=== PATIENT | female | born 2000 | race Caucasian/White ===

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

== ENCOUNTER 2019-02-06 13:31 | Emergency (ER) | payer OTHER, MEDICAID, SELFPAY ==
[2019-02-06 13:41] VITALS: BP 141/94; PULSE 78; RESP 16; TEMP 36.2; O2SAT 98
[2019-02-06 15:20] VITALS: BP 140/94; PULSE 81; RESP 15; TEMP 36.4; O2SAT 100
== END 2019-02-06 17:03 | disposition left against medical advice (07) ==
PROVIDERS: Emergency Provider Emergency Medicine
DX: Z53.21 Procedure and treatment not carried out due to patient leaving prior to being seen by health care provider (principal)
CPT/HCPCS: 99282

== ENCOUNTER → 2019-03-02 12:53 | Outpatient (CLI) | payer OTHER, MEDICAID, SELFPAY ==
[2019-03-02 15:11] LABS: Urine N gonorrhoeae NOT DETECTED
[2019-03-02 15:33] LABS: Urine Chlamydia DETECTED
== END ==
PROVIDERS: Visit Provider Physician Assistant
DX: N89.8 Other specified noninflammatory disorders of vagina (principal); R10.9 Unspecified abdominal pain
CPT/HCPCS: 87086; 87210; 87491; 87591

== ENCOUNTER 2019-03-18 14:39 | Emergency (ER) | payer OTHER, MEDICAID, SELFPAY ==
[2019-03-18 14:44] VITALS: BP 126/86; PULSE 105; RESP 14; TEMP 36.6; O2SAT 96; BMI 33.3
--- NOTE | 2019-03-20 12:43 | ED_ITS ---
HPI - Back Pain/Injury General Chief Complaint: Back Pain/Injury Stated Complaint: back pain Related Data Home Medications Medication Instructions Recorded Confirmed albuterol sulfate [Ventolin HFA] 2 puff INH Q4HP PRN #0 02/27/17 03/02/19 ipratropium bromide [Atrovent HFA] 1 puff INH BID #0 02/27/17 03/02/19 ibuprofen #0 07/02/17 03/02/19 acyclovir 400 mg PO BID 07/30/18 03/02/19 Previous Rx's Medication Instructions Recorded azithromycin 250 mg tablet 1,000 mg PO ONCE #4 tab 03/02/19 Allergies Allergy/AdvReac Type Severity Reaction Status Date / Time sertraline [From ZOLOFT] Allergy Unknown Hives Verified 03/18/19 14:47 [facility] Medical History (Updated 03/18/19 @ 18:07 by Esther Francisco RN) 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 Discharge Plan Departure Patient Disposition: Left Against Medical Advice Clinical Impression: Patient left after triage Discharge Date/Time: 03/18/19 17:24 Prescriptions: No Action azithromycin 250 mg tablet 1,000 mg PO ONCE Qty: 4 RF: 0 albuterol sulfate [Ventolin HFA] 90 MCG/PUFF HFA aerosol inhaler 2 puff INH Q4HP PRN (Reason: Shortness Of Breath) Qty: 0 RF: 0 ipratropium bromide [Atrovent HFA] 12.9 GM HFA aerosol inhaler 1 puff INH BID Qty: 0 RF: 0 ibuprofen 200 MG tablet Qty: 0 RF: 0 acyclovir 400 mg tablet 400 mg PO BID RF: 0 Stand Alone Forms: Against Medical Advice
== END 2019-03-18 17:24 | disposition left against medical advice (07) ==
PROVIDERS: Emergency Provider Emergency Medicine
DX: Z53.21 Procedure and treatment not carried out due to patient leaving prior to being seen by health care provider (principal)
CPT/HCPCS: 99281

== ENCOUNTER 2019-03-24 20:21 | Emergency (ER) | payer OTHER, MEDICAID, SELFPAY ==
[2019-03-24 21:21] VITALS: BP 134/85; PULSE 85; RESP 16; TEMP 36.8; O2SAT 96; BMI 33.3
[2019-03-24 23:23] LABS: RBC Urine None Seen (0-5/HPF)
--- NOTE | 2019-03-24 23:33 | ED.BACK ---
HPI - Back Pain/Injury General Chief Complaint: Back Pain/Injury Stated Complaint: LOW BACK PAIN, GOING DOWN LT LEG Time Seen by Provider: 03/24/19 23:04 Source: patient Mode of arrival: ambulatory Limitations: no limitations History of Present Illness HPI Narrative: Patient is a 89-year-old female who presents with back pain. She says she fell about a week ago she has some left flank pain. she has some left leg pain now but did not use to have it. She has no fever or chills no radiation to her abdomen no abnormal vaginal bleeding. No pain free with urination. No other injury. She has been taking Aleve without any relief. Urine is positive, she did not know she was . She has no abdominal pain. she was actually seen here March 20 she actually waited in the waiting room and left prior to evaluation due to the significant long wait. She has been having this back pain off and on for some time. MD Complaint: back pain Related Data Home Medications Medication Instructions Recorded Confirmed albuterol sulfate [Ventolin HFA] 2 puff INH Q4HP PRN #0 02/27/17 03/02/19 ipratropium bromide [Atrovent HFA] 1 puff INH BID #0 02/27/17 03/02/19 ibuprofen #0 07/02/17 03/02/19 acyclovir 400 mg PO BID 07/30/18 03/02/19 Previous Rx's Medication Instructions Recorded azithromycin 250 mg tablet 1,000 mg PO ONCE #4 tab 03/02/19 nitrofurantoin monohyd/m-cryst 100 mg PO BID #14 cap 03/25/19 [Macrobid] prenat.vits,sisi,rfv-exng-dfzph 1 tab PO DAILY #30 tab 03/25/19 Allergies Allergy/AdvReac Type Severity Reaction Status Date / Time sertraline [From ZOLOFT] Allergy Unknown Hives Verified 03/24/19 21:21 Review of Systems Review of Systems ROS Unobtainable: All systems reviewed & are unremarkable except as noted in HPI and below Constitutional Denies chills, Denies fever(s), Denies lethargy and Denies weakness ENT Ears, Nose, Mouth, and Throat: Denies vertigo and Denies dizziness Cardiovascular Denies chest pain, Denies syncope, Denies irregular heart rhythm, Denies lightheadedness, Denies palpitations, Denies dyspnea, Denies dyspnea on exertion and Denies orthopnea Respiratory Denies cough, Denies dyspnea, Denies dyspnea on exertion and Denies wheezing Genitourinary Denies hematuria, Denies flank pain, Denies urinary incontinence and Denies urinary urgency Musculoskeletal Reports as per HPI Integumentary/Breasts Denies pruritus, Denies erythema, Denies rash and Denies wounds Neurologic Denies vertigo, Denies dizziness, Denies syncope and Denies weakness Endocrine Denies palpitations Allergic/Immunologic Denies wheezing [facility] Medical History 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) General counselling and advice on contraception (Resolved) Pyelonephritis (Chronic) Dysmenorrhea (Inactive) Menorrhagia (Inactive) Surgical History No pertinent past surgical history (Chronic) Family History Other Family history non-contributory Social History Smoking Status: Never smoker Family History Other Family history non-contributory Social History Smoking Status: Never smoker Exam Initial Vital Signs Initial Vital Signs: Vital Signs Temperature 98.2 F 03/24/19 21:21 Pulse Rate 85 03/24/19 21:21 Respiratory Rate 16 03/24/19 21:21 Blood Pressure 134/85 03/24/19 21:21 Pulse Oximetry 96 03/24/19 21:21 GENERAL: Well-appearing, well-nourished and in no acute distress. HEENT: Head atraumatic,EOMI, pupils reactive, CARDIOVASCULAR: Regular rate and rhythm without murmurs, rubs or gallops. RESPIRATORY: Breath sounds equal bilaterally, no wheezes rales or rhonchi. ABDOMEN: Soft, nontender. Normoactive bowel sounds all 4 quadrants. No guarding or rebound. BACK: No vertebral tenderness : mild left CVA tenderness PELVIC: External genitalia is normal, no vaginal bleeding, no vaginal discharge, no odor, cervical os is closed, no adnexal tenderness EXTREMITIES: Normal range of motion, no clubbing or edema. Neurovascularly intact NEUROLOGICAL: Alert and oriented x4.Normal gait and speech. SKIN: Warm, dry, no laceration, no petechiae, no rashes or lesions. Course Orders Ordered: ED Orders 03/24/19 23:07 Urine Culture Stat Urine Microscopic Stat 03/24/19 23:40 US pelvic complete Stat 03/24/19 23:55 ABO RH Type Stat Complete Blood Count AUTO DIFF Stat Comprehensive Metabolic Panel Stat HCG Quantitative Stat Discontinued Medications Nitrofurantoin Macrocrystals (Macrobid 100mg Prepack) 1 bottle MISC SEEINSTR ONE Stop: 03/25/19 01:36 Last Admin: 03/25/19 01:47 Dose: 1 bottle Vital Signs - 8 hr 03/24/19 21:21 03/25/19 01:52 Temperature 98.2 F Pulse Rate 85 91 H Respiratory Rate 16 16 Blood Pressure 134/85 134/77 Pulse Oximetry 96 99 MDM - Back Pain/Injury Lab Data Attestation: I reviewed the patient's lab results. Result diagrams: 03/24/19 23:55 03/24/19 23:55 Lab Results 03/24/19 03/24/19 03/24/19 Range/Units 23:07 23:55 23:55 WBC 8.8 (4.5-11.0) X10^3/uL RBC 5.14 (4.0-5.2) X10^6/uL Hgb 14.2 (12.0-16.0) g/dL Hct 42.4 (36-46) % MCV 82.5 (80-100) fL MCH 27.6 (26-34) PG MCHC 33.5 (30-36) % RDW 13.5 (11.6-14.8) % Plt Count 268 (150-400) X10^3/uL Neut % (Auto) 55.1 (50-75) % Lymph % (Auto) 36.1 (25-40) % [place] % (Auto) 6.5 (3-14) % Eos % (Auto) 1.7 L (2-4) % Baso % (Auto) 0.6 (0-2) % Neut # (Auto) 4800 (1990-3520) /uL Lymph # (Auto) 3200 (0744-9265) /uL [place] # (Auto) 600 (0-900) /uL Eos # (Auto) 100 (0-450) /uL Baso # (Auto) 100 (0-100) /uL Sodium 139 (137-145) mmol/L Potassium 3.5 (3.4-5.1) mmol/L Chloride 103 (98-107) mmol/L Carbon Dioxide 25 (22-32) mmol/L BUN 11 (7-17) mg/dL Creatinine 0.60 (0.52-1.04) mg/dL Estimated GFR > 60.0 (>60) mL/min BUN/Creatinine Ratio 18.3 (6-22) Glucose 99 (70-100) mg/dL Calcium 9.0 (8.4-10.2) mg/dL Total Bilirubin 0.3 (0.2-1.3) mg/dL AST 20 (14-36) IU/L ALT 15 (9-52) IU/L Alkaline Phosphatase 79 (38-126) U/L Total Protein 8.0 (6.3-8.2) g/dL Albumin 4.5 (3.5-5.0) g/dL Globulin 3.5 (1.7-4.1) g/dL Albumin/Globulin Ratio 1.3 (1.0-2.8) HCG, Quant 178.98 mIU/mL Urine RBC None seen (0-5/HPF) Urine WBC 1-5/hpf (0-5/HPF) Ur Squamous Epith Cells 1-5 /hpf (0-5/HPF) Urine Bacteria Few (2-10) H (None) Ur Culture Indicated? Specimen cultured Blood Type 03/24/19 Range/Units 23:55 WBC (4.5-11.0) X10^3/uL RBC (4.0-5.2) X10^6/uL Hgb (12.0-16.0) g/dL Hct (36-46) % MCV (80-100) fL MCH (26-34) PG MCHC (30-36) % RDW (11.6-14.8) % Plt Count (150-400) X10^3/uL Neut % (Auto) (50-75) % Lymph % (Auto) (25-40) % [place] % (Auto) (3-14) % Eos % (Auto) (2-4) % Baso % (Auto) (0-2) % Neut # (Auto) (5370-3480) /uL Lymph # (Auto) (9904-2942) /uL [place] # (Auto) (0-900) /uL Eos # (Auto) (0-450) /uL Baso # (Auto) (0-100) /uL Sodium (137-145) mmol/L Potassium (3.4-5.1) mmol/L Chloride (98-107) mmol/L Carbon Dioxide (22-32) mmol/L BUN (7-17) mg/dL Creatinine (0.52-1.04) mg/dL Estimated GFR (>60) mL/min BUN/Creatinine Ratio (6-22) Glucose (70-100) mg/dL Calcium (8.4-10.2) mg/dL Total Bilirubin (0.2-1.3) mg/dL AST (14-36) IU/L ALT (9-52) IU/L Alkaline Phosphatase (38-126) U/L Total Protein (6.3-8.2) g/dL Albumin (3.5-5.0) g/dL Globulin (1.7-4.1) g/dL Albumin/Globulin Ratio (1.0-2.8) HCG, Quant mIU/mL Urine RBC (0-5/HPF) Urine WBC (0-5/HPF) Ur Squamous Epith Cells (0-5/HPF) Urine Bacteria (None) Ur Culture Indicated? 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 Nodular area in the right ovary likely a complex corpus luteum. However findings technically indeterminate. Recommend correlation with HCG levels. Follow-up ultrasound is warranted. MDM Narrative Medical decision making narrative: The patient's last menstrual cycle was February 19. She is likely very early . HCG level is low under 500 and is 178. She has no adnexal tenderness. At this time I think it is too early to tell of if is viable and if ectopic. She has no pain. She does not have an OB or PCP. I strongly recommended she have repeat blood work in 48 hours and repeat ultrasound at a later date. He is given multiple recommendations for OB along with [facility] information She has been having ongoing back pain, however at this time I do not believe she needs imaging of her back. she was also recently treated for Chlamydia March 02. Discharge Plan Departure Patient Disposition: Home Clinical Impression: UTI (urinary tract infection) in in first trimester Discharge Date/Time: 03/25/19 01:53 Interventions: ED Discharge Assessment Last Done: 03/25/19 01:52 Instructions: DI for Urinary Tract Infection (UTI), DI for -- Discomforts and Remedies Activity Restrictions/Additional Instructions: HC.98 Blood type: O+ *You have been diagnosed with bladder infection and early *What to do: You need to have HCG recheck in 48hrs, it needs to double. *Continue to take medications as directed vitamin once daily Macrobid 100 mg twice a day for 7 days Avoid ibuprofen/Aleve/asthma You may take Tylenol 650 mg every 4-6 hours if needed for pain Avoid smoking and alcohol *Follow up with your primary care provider in 2-3 days *Return to ER if you should have increasing abdominal pain, vaginal bleeding, or any new, worsening or concerning symptoms [facility] [address] [place] [address] Get Directions CONTACT US BOOK ONLINE Call: [phone] Prescriptions: Kwan kwan.vits,sisi,bzt-qbnp-oltkw tablet 1 tab PO DAILY Qty: 30 RF: 0 nitrofurantoin monohyd/m-cryst [Macrobid] 100 mg capsule 100 mg PO BID Qty: 14 RF: 0 No Action azithromycin 250 mg tablet 1,000 mg PO ONCE Qty: 4 RF: 0 albuterol sulfate [Ventolin HFA] 90 MCG/PUFF HFA aerosol inhaler 2 puff INH Q4HP PRN (Reason: Shortness Of Breath) Qty: 0 RF: 0 ipratropium bromide [Atrovent HFA] 12.9 GM HFA aerosol inhaler 1 puff INH BID Qty: 0 RF: 0 ibuprofen 200 MG tablet Qty: 0 RF: 0 acyclovir 400 mg tablet 400 mg PO BID RF: 0 Referrals: Leta Armijo MD [Physician] - Charu Locke MD [Physician] - Irena Wood MD [Physician] - Tico Cleveland MD [Physician] - Tico Smith MD [Physician] - Aida Redding DO [Physician] -
--- NOTE | 2019-03-24 23:40 | DI.US.S_ITS ---
PROCEDURE: US PELVIC COMPLETE INDICATIONS: POSITIVE TEST; BACK PAIN TECHNIQUE: Real-time scanning was performed of the pelvic organs, with image documentation. Additional endovaginal scanning was necessary due to incomplete visualization of the adnexal and endometrial structures by transabdominal scanning. COMPARISON: None. FINDINGS: Transabdominal scanning: Limited scanning through the kidneys shows no hydronephrosis. No pathologic free abdominal or pelvic fluid. Endovaginal scanning: Uterus: Uterus is normal in size at 9.9 x 4.9 x 7.0 cm. no intrauterine identified. The endometrium measures 21 mm in combined thickness. Ovaries: Right adnexa measures 3.1 x 3.5 x 2.4 cm. There is a 1.6 x 1.6 x 2.0 cm complex cyst/mass in the right adnexa which may represent a corpus luteal cyst versus ectopic . Left adnexa measures 2.1 x 1.7 x 1.8 cm and left adnexa is sonographically normal. IMPRESSION: 1. No intrauterine identified. 2. Complex right adnexal cyst/mass which may represent corpus luteal cyst or ectopic . Recommend close clinical observation, correlation with serial beta hCG and short term ultrasound followup. 3. Endometrial thickening of uncertain etiology. Gestational trophoblastic disease is not completely excluded. Dictated by: Siria Mariano MD, PhD on 03/25/2019 at 7:48 Approved by: Siria Mariano MD, PhD on 03/25/2019 at 7:54
[2019-03-24 23:41] LABS: Bacteria Urine Few (2-10); Squamous Epithelial Cell Urine 1-5 /HPF (0-5/HPF); WBC Urine 1-5/HPF (0-5/HPF)
[2019-03-24 23:42] LABS: Culture Indicated Urine Specimen Cultured
[2019-03-25 00:15] LABS: Add Manual Diff / Slide Review NO; Basophils Absolute Auto 100 /uL (0-100); Basophils Percent Auto 0.6 % (0-2); Eosinophils Absolute Auto 100 /uL (0-450); Eosinophils Percent Auto 1.7 % (2-4); Hematocrit 42.4 % (36-46); Hemoglobin 14.2 g/dL (12.0-16.0); Lymphocytes Absolute Auto 3200 /uL (1100-4500); Lymphocytes Percent Auto 36.1 % (25-40); Mean Corpuscular HGB Conc 33.5 % (30-36); Mean Corpuscular Hemoglobin 27.6 PG (26-34); Mean Corpuscular Volume 82.5 fL (80-100); Monocytes Absolute Auto 600 /uL (0-900); Monocytes Percent Auto 6.5 % (3-14); Neutrophils Absolute Auto 4800 /uL (1500-7000); Neutrophils Percent Auto 55.1 % (50-75); Platelet Count 268 X10^3/uL (150-400); Red Blood Cell Count 5.14 X10^6/uL (4.0-5.2); Red Cell Distribution Width 13.5 % (11.6-14.8); White Blood Cell Count 8.8 X10^3/uL (4.5-11.0)
[2019-03-25 00:23] LABS: Alanine Aminotransferase 15 IU/L (9-52); Albumin 4.5 g/dL (3.5-5.0); Albumin Globulin Ratio 1.3 (1.0-2.8); Alkaline Phosphatase 79 U/L (38-126); Aspartate Aminotransferase 20 IU/L (14-36); BUN Creatinine Ratio 18.3 (6-22); Bilirubin Total 0.3 mg/dL (0.2-1.3); Blood Urea Nitrogen 11 mg/dL (7-17); Carbon Dioxide 25 mmol/L (22-32); Chloride 103 mmol/L (98-107); Estimated Glomerular Filt Rate > 60.0 mL/min (>60); Globulin 3.5 g/dL (1.7-4.1); Glucose 99 mg/dL (70-100); HEMOLYSIS < 15 (0-50); Potassium 3.5 mmol/L (3.4-5.1); Sodium 139 mmol/L (137-145)
[2019-03-25 00:40] LABS: HCG Quantitative /Beta subunit 178.98 mIU/mL
[2019-03-25] MEDS: NITROFURANTOIN 100MG PREPACK 1 BOTTLE MISC (01:47)
[2019-03-25 01:52] VITALS: BP 134/77; PULSE 91; RESP 16; O2SAT 99
== END 2019-03-25 01:53 | disposition home or self-care (01) ==
PROVIDERS: Emergency Provider Emergency Medicine
DX: O23.41 Unspecified infection of urinary tract in pregnancy, first trimester (principal); R10.9 Unspecified abdominal pain; M79.605 Pain in left leg; W19.XXXA Unspecified fall, initial encounter
CPT/HCPCS: 36415; 76830; 76856; 80053; 81003; 81015; 81025; 84702; 85025; 86900; 86901; 87086; 99282; 99284

== ENCOUNTER → 2019-04-08 13:20 | Outpatient (CLI) | payer OTHER, MEDICAID, SELFPAY ==
[2019-04-08 13:48] LABS: Add Manual Diff / Slide Review NO; Basophils Absolute Auto 100 /uL (0-100); Basophils Percent Auto 0.9 % (0-2); Eosinophils Absolute Auto 100 /uL (0-450); Eosinophils Percent Auto 1.1 % (2-4); Hematocrit 41.9 % (36-46); Hemoglobin 14.1 g/dL (12.0-16.0); Lymphocytes Absolute Auto 2300 /uL (1100-4500); Lymphocytes Percent Auto 28.8 % (25-40); Mean Corpuscular HGB Conc 33.6 % (30-36); Mean Corpuscular Hemoglobin 28.1 PG (26-34); Mean Corpuscular Volume 83.4 fL (80-100); Monocytes Absolute Auto 400 /uL (0-900); Monocytes Percent Auto 5.5 % (3-14); Neutrophils Absolute Auto 5200 /uL (1500-7000); Neutrophils Percent Auto 63.7 % (50-75); Platelet Count 298 X10^3/uL (150-400); Red Blood Cell Count 5.02 X10^6/uL (4.0-5.2); Red Cell Distribution Width 13.3 % (11.6-14.8); White Blood Cell Count 8.1 X10^3/uL (4.5-11.0)
[2019-04-08 13:51] LABS: Appearance Urine UA CLEAR; Bilirubin Urine UA NEGATIVE (NEGATIVE); Color Urine UA YELLOW; Glucose Urine UA NEGATIVE (Negative); Ketones Urine UA NEGATIVE (NEGATIVE); Leukocyte Esterase Urine UA NEGATIVE (NEGATIVE); Nitrite Urine UA NEGATIVE (Negative); Occult Blood Urine UA NEGATIVE (Negative); Protein Urine UA NEGATIVE (Negative); Specific Gravity Urine UA >=1.030 (1.000-1.035); Urobilinogen Urine UA 0.2 E.U./dL (0.2)
[2019-04-08 13:56] LABS: Hemoglobin A1C% w Est Avg Glu 5.1 % (4.0-6.0)
[2019-04-08 13:58] LABS: Glucose 90 mg/dL (70-100)
[2019-04-08 18:29] LABS: Hepatitis B Surface Antigen NEGATIVE s/c (NEGATIVE); Rubella Antibody IgG 37.4 IU/mL (>15)
[2019-04-08 18:42] LABS: HIV 1 and 2 Antibody NEGATIVE (NEGATIVE); Hep C Virus Ab w/Reflex Quant NEGATIVE s/c (NEGATIVE)
[2019-04-10 14:36] LABS: RPR Screen Nonreactive (Nonreactive)
== END ==
DX: Z34.91 Encounter for supervision of normal pregnancy, unspecified, first trimester (principal)
CPT/HCPCS: 36415; 80055; 81003; 82947; 83036; 86703; 86787; 86803; 86850; 86900; 86901; 87086

== ENCOUNTER 2019-04-11 14:23 | Emergency (ER) | payer OTHER, MEDICAID, SELFPAY ==
[2019-04-11 14:29] VITALS: BP 134/84; PULSE 77; RESP 16; TEMP 36.9; O2SAT 97; BMI 32.9
--- NOTE | 2019-04-11 15:15 | ED_ITS ---
HPI - General Chief complaint: Vaginal Bleeding Stated complaint: 8 weeks , bleeding Time Seen by Provider: 04/11/19 14:39 Source: patient Mode of arrival: ambulatory Limitations: no limitations History of Present Illness HPI Narrative: Patient is a 18-year-old who is currently presenting with back pain and some light spotting. Today she woke up with actually nausea and dry heaving. She has no abdominal pain. No fever. She recently had her 1st OB visit, and ultrasound showed 7 weeks 4 days per patient. She is previously had frequent UTIs. She has also previously had some flank pain. 03/24/2019 she was diagnosed with UTI she was given antibiotics. She said symptoms improved since then however this morning she has been having some nausea and vaginal spotting. MD Complaint: vaginal bleeding Patient : Yes Related Data Home Medications Medication Instructions Recorded Confirmed albuterol sulfate [Ventolin HFA] 2 puff INH Q4HP PRN #0 02/27/17 03/02/19 ipratropium bromide [Atrovent HFA] 1 puff INH BID #0 02/27/17 03/02/19 Previous Rx's Medication Instructions Recorded prenat.vits,sisi,fbz-hqdg-zsyfq 1 tab PO DAILY #30 tab 03/25/19 Allergies Allergy/AdvReac Type Severity Reaction Status Date / Time sertraline [From ZOLOFT] Allergy Unknown Hives Verified 04/11/19 14:33 Review of Systems Review of Systems ROS Unobtainable: All systems reviewed & are unremarkable except as noted in HPI and below Constitutional Denies chills, Denies fever(s), Denies lethargy and Denies weakness Eyes Denies change in vision, Denies eye discharge, Denies irritation and Denies loss of vision ENT Ears, Nose, Mouth, and Throat: Denies change in voice, Denies neck pain and Denies sore throat Cardiovascular Denies chest pain, Denies irregular heart rhythm, Denies lightheadedness, Denies palpitations, Denies dyspnea, Denies dyspnea on exertion and Denies orthopnea Respiratory Denies cough, Denies dyspnea, Denies dyspnea on exertion and Denies wheezing Gastrointestinal Gastrointestinal: Denies abdominal pain, Denies change in bowel habits, Denies diarrhea, Denies nausea and Denies vomiting Genitourinary Reports system reviewed and no additional complaints, except as docu Musculoskeletal Denies neck pain Integumentary/Breasts Denies pruritus, Denies erythema, Denies rash and Denies wounds Neurologic Denies loss of vision and Denies weakness Endocrine Denies palpitations Allergic/Immunologic Denies wheezing PMFSH - Past Medical History Medical history: Reports no medical history Surgical history: Reports no surgical history Patient : Yes Exam Initial Vital Signs Initial Vital Signs: Vital Signs Temperature 98.5 F 04/11/19 14:29 Pulse Rate 77 04/11/19 14:29 Respiratory Rate 16 04/11/19 14:29 Blood Pressure 134/84 04/11/19 14:29 Pulse Oximetry 97 04/11/19 14:29 GENERAL: Well-appearing, well-nourished and in no acute distress. HEENT: Head atraumatic,EOMI, pupils reactive, face symmetric, moist mucous membranes CARDIOVASCULAR: Regular rate and rhythm without murmurs, rubs or gallops. RESPIRATORY: Breath sounds equal bilaterally, no wheezes rales or rhonchi. ABDOMEN: Soft, nontender. Normoactive bowel sounds all 4 quadrants. No guarding or rebound. EXTREMITIES: Normal range of motion, no clubbing or edema. Neurovascularly intact NEUROLOGICAL: Alert and oriented x4.Normal gait and speech. SKIN: Warm, dry, no laceration, no petechiae, no rashes or lesions. Course Orders Ordered: Discontinued Medications Sodium Chloride (Normal Saline 0.9%) 1,000 mls @ 1,000 mls/hr IV BOLUS ONE Stop: 04/11/19 16:14 Last Infusion: 04/11/19 16:51 Dose: 0 mls/hr Admin: 04/11/19 15:28 Dose: 1,000 mls/hr Ondansetron HCl (Zofran) 4 mg IV NOW ONE Stop: 04/11/19 15:23 Last Admin: 04/11/19 15:28 Dose: 4 mg Vital Signs - 8 hr 04/11/19 14:29 04/11/19 16:34 Temperature 98.5 F 99.0 F Pulse Rate 77 77 Respiratory Rate 16 16 Blood Pressure 134/84 Blood Pressure [Left Arm] 126/67 Pulse Oximetry 97 99 MDM - OB/Uterine Contractions Lab Data Attestation: I reviewed the patient's lab results. Result diagrams: 04/11/19 15:45 05/25/19 15:45 Lab Results 04/11/19 04/11/19 04/11/19 Range/Units 15:45 15:45 15:57 WBC 7.9 (4.5-11.0) X10^3/uL RBC 4.90 (4.0-5.2) X10^6/uL Hgb 13.8 (12.0-16.0) g/dL Hct 40.4 (36-46) % MCV 82.5 (80-100) fL MCH 28.2 (26-34) PG MCHC 34.2 (30-36) % RDW 13.5 (11.6-14.8) % Plt Count 276 (150-400) X10^3/uL Neut % (Auto) 63.5 (50-75) % Lymph % (Auto) 29.0 (25-40) % [place] % (Auto) 5.7 (3-14) % Eos % (Auto) 1.2 L (2-4) % Baso % (Auto) 0.6 (0-2) % Neut # (Auto) 5000 (1114-6928) /uL Lymph # (Auto) 2300 (5582-7426) /uL [place] # (Auto) 400 (0-900) /uL Eos # (Auto) 100 (0-450) /uL Baso # (Auto) 0 (0-100) /uL Sodium 136 L (137-145) mmol/L Potassium 4.2 (3.4-5.1) mmol/L Chloride 104 (98-107) mmol/L Carbon Dioxide 24 (22-32) mmol/L BUN 9 (7-17) mg/dL Creatinine 0.50 L (0.52-1.04) mg/dL Estimated GFR > 60.0 (>60) mL/min BUN/Creatinine Ratio 18.0 (6-22) Glucose 85 (70-100) mg/dL Calcium 9.5 (8.4-10.2) mg/dL Total Bilirubin 0.5 (0.2-1.3) mg/dL AST 33 (14-36) IU/L ALT 25 (9-52) IU/L Alkaline Phosphatase 57 (38-126) U/L Total Protein 7.8 (6.3-8.2) g/dL Albumin 4.4 (3.5-5.0) g/dL Globulin 3.4 (1.7-4.1) g/dL Albumin/Globulin Ratio 1.3 (1.0-2.8) HCG, Quant 75386 mIU/mL Urine Color Yellow Urine Appearance Clear Urine pH 5.5 (4.5-8.0) Ur Specific [place] 1.025 (1.000-1.035) Urine Protein Trace H (Negative) Urine Glucose (UA) Negative (Negative) g/dL Urine Ketones Negative (NEGATIVE) Urine Occult Blood Negative (Negative) Urine Nitrate Negative (Negative) Urine Bilirubin Negative (NEGATIVE) Urine Urobilinogen 0.2 (0.2) E.U./dL Ur Leukocyte Esterase 2+ H (NEGATIVE) Urine RBC None seen (0-5/HPF) Urine WBC 5-10/hpf H (0-5/HPF) Ur Squamous Epith Cells 5-10 /hpf H (0-5/HPF) Urine Bacteria None seen (None) Urine Mucus 2+ H (Negative) Ur Culture Indicated? Cult not indicated Point of Care Testing Test Results Positive Imaging Data pelvic US: Radiologist's impression: PROCEDURE: US OB <= 14 WEEKS FETUS INDICATIONS: BLEEDING; BACK PAIN OUTSIDE/PRIOR DATING DATA: Last menstrual period (LMP): 02/19/19. LMP-based estimated date of delivery (HIEN): 11/26/19. First dating scan (date and location): 04/11/19, [facility]. Estimated date of delivery (HIEN) from first dating scan: 12/02/19. TECHNIQUE: Real-time scanning was performed of the fetus and maternal pelvic organs, with image documentation. Endovaginal scanning was also performed to better visualize the fetus and maternal ovaries. COMPARISON: [facility], US, US PELVIC COMPLETE, 03/25/2019, 0:17. FINDINGS: Embryo: A single live intrauterine is seen. The measured heart rate is 118 beats per minute. The crown-rump length measures 0.6 cm, corresponding to an estimated gestational age of 6 weeks 3 days. It is too early for detailed anatomic assessment. By visual inspection, the amount of amniotic fluid is within normal limits. Adjacent to the gestational sac, there is an irregular fluid collection seen that measures 4.1- 0.6 x 3.4 cm. Measurement variability in dating: +/- 4 weeks by LMP, +/- 7 days by mean sac diameter (use before 6 weeks gestation if crown-rump length not able to be measured), +/- 5 days by crown-rump length (up to 8 weeks 6 days gestation), +/- 7 days by crown-rump length (up to 13 weeks 6 days gestation). Maternal organs: Ovaries are unremarkable, with a corpus luteum seen on the right. Limited images through the kidneys demonstrate no hydronephrosis. IMPRESSION: A single live intrauterine is seen. Moderate subchorionic hemorrhage is seen. No significant discrepancy is found between the estimated gestational age based on these images and the estimated gestational age based upon the given date of the last menstrual period. Close clinical followup, with serial beta-hCG and serial ultrasound are recommended, as clinically appropriate. Dictated by: Carlos Lazo M.D. on 04/11/2019 at 15:40 MDM Narrative Medical decision making narrative: Patient overall is feeling much better tolerating oral fluid. Discharge Plan Departure Patient Disposition: Home Clinical Impression: Subchorionic hematoma in first trimester Qualifiers: Fetus number: single or unspecified fetus Qualified Code(s): O41.8X10 - Other specified disorders of amniotic fluid and membranes, first trimester, not applicable or unspecified Discharge Date/Time: 04/11/19 17:45 Interventions: ED Discharge Assessment Last Done: 04/11/19 17:44 Instructions: DI for Vaginal Bleeding During Activity Restrictions/Additional Instructions: *You have been diagnosed with vaginal bleeding while *What to do: Pelvic rest until bleeding has stopped. No sign of infection at this time. Recommend taking up medication from store for nausea *Continue to take medications as directed *Follow up with your primary care provider in 2-3 days *Return to ER if you should have increased vaginal bleeding, pain inability to tolerate fluids or any new, worsening or concerning symptoms Prescriptions: No Action albuterol sulfate [Ventolin HFA] 90 MCG/PUFF HFA aerosol inhaler 2 puff INH Q4HP PRN (Reason: Shortness Of Breath) Qty: 0 RF: 0 ipratropium bromide [Atrovent HFA] 12.9 GM HFA aerosol inhaler 1 puff INH BID Qty: 0 RF: 0 prenat.vits,sisi,cmm-staw-jswru tablet 1 tab PO DAILY Qty: 30 RF: 0
[2019-04-11] MEDS: SODIUM CHLORIDE 0.9% 1,000 ML 1000 ML IV (15:28)
[2019-04-11] MEDS: ONDANSETRON 4 MG/2 ML INJ IV (15:28)
[2019-04-11 15:54] LABS: Add Manual Diff / Slide Review NO; Basophils Absolute Auto 0 /uL (0-100); Basophils Percent Auto 0.6 % (0-2); Eosinophils Absolute Auto 100 /uL (0-450); Eosinophils Percent Auto 1.2 % (2-4); Hematocrit 40.4 % (36-46); Hemoglobin 13.8 g/dL (12.0-16.0); Lymphocytes Absolute Auto 2300 /uL (1100-4500); Mean Corpuscular HGB Conc 34.2 % (30-36); Mean Corpuscular Hemoglobin 28.2 PG (26-34); Mean Corpuscular Volume 82.5 fL (80-100); Monocytes Absolute Auto 400 /uL (0-900); Monocytes Percent Auto 5.7 % (3-14); Neutrophils Absolute Auto 5000 /uL (1500-7000); Neutrophils Percent Auto 63.5 % (50-75); Platelet Count 276 X10^3/uL (150-400); Red Cell Distribution Width 13.5 % (11.6-14.8); White Blood Cell Count 7.9 X10^3/uL (4.5-11.0)
[2019-04-11 15:59] LABS: Bacteria Urine None Seen; RBC Urine None Seen (0-5/HPF)
[2019-04-11 16:03] LABS: Appearance Urine UA CLEAR; Bilirubin Urine UA NEGATIVE (NEGATIVE); Color Urine UA YELLOW; Glucose Urine UA NEGATIVE (Negative); Ketones Urine UA NEGATIVE (NEGATIVE); Leukocyte Esterase Urine UA 2+ (NEGATIVE); Nitrite Urine UA NEGATIVE (Negative); Occult Blood Urine UA NEGATIVE (Negative); Protein Urine UA TRACE (Negative); Specific Gravity Urine UA 1.025 (1.000-1.035); Urobilinogen Urine UA 0.2 E.U./dL (0.2); pH Urine UA 5.5 (4.5-8.0)
[2019-04-11 16:04] LABS: Alanine Aminotransferase 25 IU/L (9-52); Albumin 4.4 g/dL (3.5-5.0); Albumin Globulin Ratio 1.3 (1.0-2.8); Alkaline Phosphatase 57 U/L (38-126); Aspartate Aminotransferase 33 IU/L (14-36); Bilirubin Total 0.5 mg/dL (0.2-1.3); Blood Urea Nitrogen 9 mg/dL (7-17); Calcium 9.5 mg/dL (8.4-10.2); Carbon Dioxide 24 mmol/L (22-32); Chloride 104 mmol/L (98-107); Estimated Glomerular Filt Rate > 60.0 mL/min (>60); Globulin 3.4 g/dL (1.7-4.1); Glucose 85 mg/dL (70-100); HEMOLYSIS 39 (0-50); Potassium 4.2 mmol/L (3.4-5.1); Sodium 136 mmol/L (137-145); Total Protein 7.8 g/dL (6.3-8.2)
[2019-04-11 16:09] LABS: Mucus Urine 2+ (Negative); Squamous Epithelial Cell Urine 5-10 /HPF (0-5/HPF); WBC Urine 5-10/HPF (0-5/HPF)
[2019-04-11 16:10] LABS: Culture Indicated Urine Cult Not Indicated
[2019-04-11 16:34] VITALS: BP 126/67; PULSE 77; RESP 16; TEMP 37.2; O2SAT 99
[2019-04-11 16:46] LABS: HCG Quantitative /Beta subunit 52259 mIU/mL
[2019-04-11 17:44] VITALS: BP 132/65; PULSE 67; RESP 18; TEMP 37.2; O2SAT 97
== END 2019-04-11 17:45 | disposition home or self-care (01) ==
PROVIDERS: Emergency Provider Emergency Medicine
DX: O41.8X10 Other specified disorders of amniotic fluid and membranes, first trimester, not applicable or unspecified (principal); Z3A.01 Less than 8 weeks gestation of pregnancy
CPT/HCPCS: 36591; 76801; 76817; 80053; 81001; 81025; 84702; 85025; 96361; 96374; 99283; 99284; J2405

== ENCOUNTER → 2019-04-16 13:20 | Outpatient (CLI) | payer OTHER, MEDICAID, SELFPAY ==
[2019-04-16 17:29] LABS: Urine N gonorrhoeae NOT DETECTED
[2019-04-16 17:33] LABS: Urine Chlamydia NOT DETECTED
== END ==
DX: Z11.3 Encounter for screening for infections with a predominantly sexual mode of transmission (principal); Z11.8 Encounter for screening for other infectious and parasitic diseases; Z3A.08 8 weeks gestation of pregnancy
CPT/HCPCS: 87491; 87591

== ENCOUNTER 2019-05-10 16:24 | Emergency (ER) | payer OTHER, MEDICAID, SELFPAY ==
[2019-05-10 16:34] VITALS: BP 140/95; PULSE 120; RESP 18; TEMP 37.1; O2SAT 97; BMI 33.1
--- NOTE | 2019-05-10 17:54 | ED.NAVMDI ---
HPI - Nausea/Vomiting/Diarrhea General Chief complaint: Nausea/Vomiting/Diarrhea Stated complaint: Dr. Locke requests fluids for 10 weeks ob Time Seen by Provider: 05/10/19 17:54 Source: patient Mode of arrival: ambulatory Limitations: no limitations History of Present Illness HPI Narrative: Patient is a 18-year-old female who is 10 weeks presenting all with abdominal cramping and nausea. She says she has been unable to keep anything down for the last 3 days. She actually was constipated she thinks probably from Zofran so she took some magnesium citrate she then has had diarrhea for the last day. She has not been vomiting today but still feels a little nauseated. She denies any fever no vaginal bleeding. MD complaint: nausea, vomiting and diarrhea Related Data Home Medications Medication Instructions Recorded Confirmed albuterol sulfate [Ventolin HFA] 2 puff INH Q4HP PRN #0 02/27/17 03/02/19 ipratropium bromide [Atrovent HFA] 1 puff INH BID #0 02/27/17 03/02/19 Previous Rx's Medication Instructions Recorded prenat.vits,sisi,usa-odhn-ibgbf 1 tab PO DAILY #30 tab 03/25/19 clindamycin 2 % vaginal cream 1 applicator VAG BEDTIME #70 gram 04/17/19 nitrofurantoin monohyd/m-cryst 100 mg PO Q12H #14 cap 05/10/19 [Macrobid] Allergies Allergy/AdvReac Type Severity Reaction Status Date / Time sertraline [From ZOLOFT] Allergy Unknown Hives Verified 05/10/19 16:34 Review of Systems Review of Systems GENERAL: Denies chills, fatigue, malaise, fever, sweats, travel HEENT: Denies sinus pain, ear pain, sore throat, difficulty swallowing, neck pain RESPIRATORY: Denies dyspnea, cough, wheezing, hemoptysis, sputum. CARDIOVASCULAR: Denies chest pain, palpitations, orthopnea, edema GASTROINTESTINAL: see HPI : Denies dysuria, frequency, incontinence, hematuria, urinary retention, flank pain. MUSCULOSKELETAL: Denies weakness, joint pain, or bony pain SKIN: No rash, no erythema, no pruritus NEUROLOGIC: Denies weakness, dizziness, headache, numbness, change in speech, confusion PSYCHIATRIC: No concerning psychosocial issues. 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) General counselling and advice on contraception (Resolved) Pyelonephritis (Chronic) Dysmenorrhea (Inactive) Menorrhagia (Inactive) Surgical History No pertinent past surgical history (Chronic) Family History Other Family history non-contributory Social History Smoking Status: Never smoker Family History Other Family history non-contributory Social History Smoking Status: Never smoker Exam Initial Vital Signs Initial Vital Signs: Vital Signs Temperature 98.7 F 05/10/19 16:34 Pulse Rate 120 H 05/10/19 16:34 Respiratory Rate 18 05/10/19 16:34 Blood Pressure 140/95 H 05/10/19 16:34 Pulse Oximetry 97 05/10/19 16:34 GENERAL: Well-appearing, well-nourished and in no acute distress. HEENT: Head atraumatic,EOMI, pupils reactive, face symmetric CARDIOVASCULAR: Regular rate and rhythm without murmurs, rubs or gallops. RESPIRATORY: Breath sounds equal bilaterally, no wheezes rales or rhonchi. ABDOMEN: Soft, nontender. Normoactive bowel sounds all 4 quadrants. No guarding or rebound. : No CVA tenderness EXTREMITIES: Normal range of motion, no clubbing or edema. Neurovascularly intact NEUROLOGICAL: Alert and oriented x4.Normal gait and speech. Cranial nerves II through XII grossly intact. SKIN: Warm, dry, no laceration, no petechiae, no rashes or lesions. Course Orders Ordered: ED Orders 05/10/19 17:35 Urine Culture Stat Urine Microscopic Stat 05/10/19 17:45 CBC [Complete Blood Count AUTO DIFF] Stat CMP [Comprehensive Metabolic Panel] Stat 05/10/19 18:10 US OB <= 14 weeks fetus Stat Discontinued Medications Sodium Chloride (Normal Saline 0.9%) 1,000 mls @ 1,000 mls/hr IV BOLUS ONE Stop: 05/10/19 18:50 Last Infusion: 05/10/19 18:50 Dose: 0 mls/hr Admin: 05/10/19 17:55 Dose: 1,000 mls/hr Metoclopramide HCl (Reglan) 10 mg IV NOW ONE Stop: 05/10/19 18:11 Last Admin: 05/10/19 18:11 Dose: 10 mg Vital Signs - 8 hr 05/10/19 18:27 05/10/19 19:40 Temperature 98.2 F Pulse Rate 76 77 Respiratory Rate 16 Blood Pressure 121/72 Blood Pressure [Left Arm] 127/61 Pulse Oximetry 98 99 MDM - Nausea/Vomiting/Diarrhea Lab Data Attestation: I reviewed the patient's lab results. Result diagrams: 05/10/19 17:45 05/10/19 17:45 Lab Results 05/10/19 05/10/19 05/10/19 Range/Units 17:35 17:45 17:45 WBC 8.5 (4.5-11.0) X10^3/uL RBC 4.73 (4.0-5.2) X10^6/uL Hgb 13.5 (12.0-16.0) g/dL Hct 39.3 (36-46) % MCV 83.3 (80-100) fL MCH 28.5 (26-34) PG MCHC 34.2 (30-36) % RDW 13.0 (11.6-14.8) % Plt Count 258 (150-400) X10^3/uL Neut % (Auto) 67.7 (50-75) % Lymph % (Auto) 25.7 (25-40) % [place] % (Auto) 5.4 (3-14) % Eos % (Auto) 0.8 L (2-4) % Baso % (Auto) 0.4 (0-2) % Neut # (Auto) 5800 (8039-6471) /uL Lymph # (Auto) 2200 (2137-6889) /uL [place] # (Auto) 500 (0-900) /uL Eos # (Auto) 100 (0-450) /uL Baso # (Auto) 0 (0-100) /uL Sodium 138 (137-145) mmol/L Potassium 3.7 (3.4-5.1) mmol/L Chloride 106 (98-107) mmol/L Carbon Dioxide 21 L (22-32) mmol/L BUN 8 (7-17) mg/dL Creatinine 0.40 L (0.52-1.04) mg/dL Estimated GFR > 60.0 (>60) mL/min BUN/Creatinine Ratio 20.0 (6-22) Glucose 114 H (70-100) mg/dL Calcium 9.5 (8.4-10.2) mg/dL Total Bilirubin 0.4 (0.2-1.3) mg/dL AST 23 (14-36) IU/L ALT 21 (9-52) IU/L Alkaline Phosphatase 62 (38-126) U/L Total Protein 7.6 (6.3-8.2) g/dL Albumin 4.2 (3.5-5.0) g/dL Globulin 3.4 (1.7-4.1) g/dL Albumin/Globulin Ratio 1.2 (1.0-2.8) Urine RBC None seen (0-5/HPF) Urine WBC 1-5/hpf (0-5/HPF) Ur Squamous Epith Cells 0-1 /hpf (0-5/HPF) Amorphous Sediment 3+ Urine Bacteria Few (2-10) H (None) Urine Mucus 1+ H (Negative) Ur Culture Indicated? Specimen cultured Urine Dip Bedside Urine Glucose Negative Bedside Urine Bilirubin + 1 Bedside Urine Ketone +/- 5 Urine Specific [place] 1.030 Bedside Urine Occult Blood - Negative Bedside Urine pH 5.5 Bedside Urine Protein +/- 15 Bedside Urine Urobilinogen +/- 1mg Bedside Urine Nitrite - Negative Bedside Urine Leukocytes + 70 Esterase Imaging Data OB US: Radiologist's impression: PROCEDURE: US OB <= 14 WEEKS FETUS INDICATIONS: CRAMPING OUTSIDE/PRIOR DATING DATA: Last menstrual period (LMP): 02/19/19. LMP-based estimated date of delivery (HIEN): 11/26/19. First dating scan (date and location): 04/11/19. Estimated date of delivery (HIEN) from first dating scan: 12/02/19. TECHNIQUE: Real-time scanning was performed of the fetus and maternal pelvic organs, with image documentation. Endovaginal scanning was also performed to better visualize the fetus and maternal ovaries. COMPARISON: [facility], , OB <= 14 WEEKS FETUS, 04/16/2019, 9:29. FINDINGS: Embryo: Gestational sac is noted within the endometrium with fetus seen. [place]-rump length measures 4.3 cm. Estimated gestational age based on current study is 11 weeks one day. Estimated gestational age based on initial study is 10 weeks 4 days. heart rate is 153 beats per minute. Measurement variability in dating: +/- 4 weeks by LMP, +/- 7 days by mean sac diameter (use before 6 weeks gestation if crown-rump length not able to be measured), +/- 5 days by crown-rump length (up to 8 weeks 6 days gestation), +/- 7 days by crown-rump length (up to 13 weeks 6 days gestation). Maternal organs: Bilateral ovaries are not visualized on this study.. Limited images through the kidneys demonstrate no hydronephrosis. IMPRESSION: Single live intrauterine gestation. heart rate is 153 beats per minute. Normal growth. Dictated by: Wilbert Fallon M.D. on 05/10/2019 at 19:00 [facility] Narrative Medical decision making narrative: Patient overall is feeling much better. He seemed to respond well to Reglan she was not vomiting here. Now tolerating oral fluids and is even hungry. Discharge Plan Departure Patient Disposition: Home Clinical Impression: UTI (urinary tract infection) during Qualifiers: Trimester: first trimester Qualified Code(s): O23.41 - Unspecified infection of urinary tract in , first trimester Discharge Date/Time: 05/10/19 19:41 Interventions: ED Discharge Assessment Last Done: 05/10/19 19:40 Instructions: DI for Urinary Tract Infection (UTI) Activity Restrictions/Additional Instructions: *You have been diagnosed with UTI in *What to do: Increased fluid intake, recommend Gatorade or Gatorade like products *Continue to take medications as directed Macrobid 100 mg twice a day for 14 days sent to [facility] in [place] *Follow up with your Ob tomorrow as previously scheduled *Return to ER if you should have persistent vomiting in bili to keep fluids down or any new, worsening or concerning symptoms Prescriptions: New nitrofurantoin monohyd/m-cryst [Macrobid] 100 mg capsule 100 mg PO Q12H Qty: 14 RF: 0 No Action albuterol sulfate [Ventolin HFA] 90 MCG/PUFF HFA aerosol inhaler 2 puff INH Q4HP PRN (Reason: Shortness Of Breath) Qty: 0 RF: 0 ipratropium bromide [Atrovent HFA] 12.9 GM HFA aerosol inhaler 1 puff INH BID Qty: 0 RF: 0 clindamycin phosphate 2 % cream 1 applicator VAG BEDTIME Qty: 70 RF: 0 prenat.vits,sisi,oav-ptdm-rbstd tablet 1 tab PO DAILY Qty: 30 RF: 0 Referrals: Charu Locke MD [Primary Care Provider] - Tico Cleveland MD [Physician] -
[2019-05-10] MEDS: SODIUM CHLORIDE 0.9% 1,000 ML 1000 ML IV (17:55)
--- NOTE | 2019-05-10 17:57 | ED_ITS ---
HPI - Nausea/Vomiting/Diarrhea General Chief complaint: Nausea/Vomiting/Diarrhea Stated complaint: Dr. Locke requests fluids for 10 weeks ob Time Seen by Provider: 05/10/19 17:54 Source: patient Mode of arrival: ambulatory Limitations: no limitations History of Present Illness HPI Narrative: Patient is a 18-year-old female who is 10 weeks presenting all with abdominal cramping and nausea. She says she has been unable to keep anything down for the last 3 days. She actually was constipated she thinks probably from Zofran so she took some magnesium citrate she then has had diarrhea for the last day. She has not been vomiting today but still feels a little nauseated. She denies any fever no vaginal bleeding. MD complaint: nausea, vomiting and diarrhea Related Data Home Medications Medication Instructions Recorded Confirmed albuterol sulfate [Ventolin HFA] 2 puff INH Q4HP PRN #0 02/27/17 03/02/19 ipratropium bromide [Atrovent HFA] 1 puff INH BID #0 02/27/17 03/02/19 Previous Rx's Medication Instructions Recorded prenat.vits,sisi,luo-rsur-thatf 1 tab PO DAILY #30 tab 03/25/19 clindamycin 2 % vaginal cream 1 applicator VAG BEDTIME #70 gram 04/17/19 nitrofurantoin monohyd/m-cryst 100 mg PO Q12H #14 cap 05/10/19 [Macrobid] Allergies Allergy/AdvReac Type Severity Reaction Status Date / Time sertraline [From ZOLOFT] Allergy Unknown Hives Verified 05/10/19 16:34 Review of Systems Review of Systems GENERAL: Denies chills, fatigue, malaise, fever, sweats, travel HEENT: Denies sinus pain, ear pain, sore throat, difficulty swallowing, neck pain RESPIRATORY: Denies dyspnea, cough, wheezing, hemoptysis, sputum. CARDIOVASCULAR: Denies chest pain, palpitations, orthopnea, edema GASTROINTESTINAL: see HPI : Denies dysuria, frequency, incontinence, hematuria, urinary retention, flank pain. MUSCULOSKELETAL: Denies weakness, joint pain, or bony pain SKIN: No rash, no erythema, no pruritus NEUROLOGIC: Denies weakness, dizziness, headache, numbness, change in speech, confusion PSYCHIATRIC: No concerning psychosocial issues. 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) General counselling and advice on contraception (Resolved) Pyelonephritis (Chronic) Dysmenorrhea (Inactive) Menorrhagia (Inactive) Surgical History No pertinent past surgical history (Chronic) Family History Other Family history non-contributory Social History Smoking Status: Never smoker Family History Other Family history non-contributory Social History Smoking Status: Never smoker Exam Initial Vital Signs Initial Vital Signs: Vital Signs Temperature 98.7 F 05/10/19 16:34 Pulse Rate 120 H 05/10/19 16:34 Respiratory Rate 18 05/10/19 16:34 Blood Pressure 140/95 H 05/10/19 16:34 Pulse Oximetry 97 05/10/19 16:34 GENERAL: Well-appearing, well-nourished and in no acute distress. HEENT: Head atraumatic,EOMI, pupils reactive, face symmetric CARDIOVASCULAR: Regular rate and rhythm without murmurs, rubs or gallops. RESPIRATORY: Breath sounds equal bilaterally, no wheezes rales or rhonchi. ABDOMEN: Soft, nontender. Normoactive bowel sounds all 4 quadrants. No guarding or rebound. : No CVA tenderness EXTREMITIES: Normal range of motion, no clubbing or edema. Neurovascularly intact NEUROLOGICAL: Alert and oriented x4.Normal gait and speech. Cranial nerves II through XII grossly intact. SKIN: Warm, dry, no laceration, no petechiae, no rashes or lesions. Course Orders Ordered: ED Orders 05/10/19 17:35 Urine Culture Stat Urine Microscopic Stat 05/10/19 17:45 CBC [Complete Blood Count AUTO DIFF] Stat CMP [Comprehensive Metabolic Panel] Stat 05/10/19 18:10 US OB <= 14 weeks fetus Stat Discontinued Medications Sodium Chloride (Normal Saline 0.9%) 1,000 mls @ 1,000 mls/hr IV BOLUS ONE Stop: 05/10/19 18:50 Last Infusion: 05/10/19 18:50 Dose: 0 mls/hr Admin: 05/10/19 17:55 Dose: 1,000 mls/hr Metoclopramide HCl (Reglan) 10 mg IV NOW ONE Stop: 05/10/19 18:11 Last Admin: 05/10/19 18:11 Dose: 10 mg Vital Signs - 8 hr 05/10/19 18:27 05/10/19 19:40 Temperature 98.2 F Pulse Rate 76 77 Respiratory Rate 16 Blood Pressure 121/72 Blood Pressure [Left Arm] 127/61 Pulse Oximetry 98 99 MDM - Nausea/Vomiting/Diarrhea Lab Data Attestation: I reviewed the patient's lab results. Result diagrams: 05/10/19 17:45 05/10/19 17:45 Lab Results 05/10/19 05/10/19 05/10/19 Range/Units 17:35 17:45 17:45 WBC 8.5 (4.5-11.0) X10^3/uL RBC 4.73 (4.0-5.2) X10^6/uL Hgb 13.5 (12.0-16.0) g/dL Hct 39.3 (36-46) % MCV 83.3 (80-100) fL MCH 28.5 (26-34) PG MCHC 34.2 (30-36) % RDW 13.0 (11.6-14.8) % Plt Count 258 (150-400) X10^3/uL Neut % (Auto) 67.7 (50-75) % Lymph % (Auto) 25.7 (25-40) % [place] % (Auto) 5.4 (3-14) % Eos % (Auto) 0.8 L (2-4) % Baso % (Auto) 0.4 (0-2) % Neut # (Auto) 5800 (1470-6449) /uL Lymph # (Auto) 2200 (3530-2571) /uL [place] # (Auto) 500 (0-900) /uL Eos # (Auto) 100 (0-450) /uL Baso # (Auto) 0 (0-100) /uL Sodium 138 (137-145) mmol/L Potassium 3.7 (3.4-5.1) mmol/L Chloride 106 (98-107) mmol/L Carbon Dioxide 21 L (22-32) mmol/L BUN 8 (7-17) mg/dL Creatinine 0.40 L (0.52-1.04) mg/dL Estimated GFR > 60.0 (>60) mL/min BUN/Creatinine Ratio 20.0 (6-22) Glucose 114 H (70-100) mg/dL Calcium 9.5 (8.4-10.2) mg/dL Total Bilirubin 0.4 (0.2-1.3) mg/dL AST 23 (14-36) IU/L ALT 21 (9-52) IU/L Alkaline Phosphatase 62 (38-126) U/L Total Protein 7.6 (6.3-8.2) g/dL Albumin 4.2 (3.5-5.0) g/dL Globulin 3.4 (1.7-4.1) g/dL Albumin/Globulin Ratio 1.2 (1.0-2.8) Urine RBC None seen (0-5/HPF) Urine WBC 1-5/hpf (0-5/HPF) Ur Squamous Epith Cells 0-1 /hpf (0-5/HPF) Amorphous Sediment 3+ Urine Bacteria Few (2-10) H (None) Urine Mucus 1+ H (Negative) Ur Culture Indicated? Specimen cultured Urine Dip Bedside Urine Glucose Negative Bedside Urine Bilirubin + 1 Bedside Urine Ketone +/- 5 [address] [place] 1.030 Bedside Urine Occult Blood - Negative Bedside Urine pH 5.5 Bedside Urine Protein +/- 15 Bedside Urine Urobilinogen +/- 1mg Bedside Urine Nitrite - Negative Bedside Urine Leukocytes + 70 Esterase Imaging Data OB US: Radiologist's impression: PROCEDURE: US OB <= 14 WEEKS FETUS INDICATIONS: CRAMPING OUTSIDE/PRIOR DATING DATA: Last menstrual period (LMP): 02/19/19. LMP-based estimated date of delivery (HIEN): 11/26/19. First dating scan (date and location): 04/11/19. Estimated date of delivery (HIEN) from first dating scan: 12/02/19. TECHNIQUE: Real-time scanning was performed of the fetus and maternal pelvic organs, with image documentation. Endovaginal scanning was also performed to better visualize the fetus and maternal ovaries. COMPARISON: [facility], , OB <= 14 WEEKS FETUS, 04/16/2019, 9:29. FINDINGS: Embryo: Gestational sac is noted within the endometrium with fetus seen. [place]- rump length measures 4.3 cm. Estimated gestational age based on current study is 11 weeks one day. Estimated gestational age based on initial study is 10 weeks 4 days. heart rate is 153 beats per minute. Measurement variability in dating: +/- 4 weeks by LMP, +/- 7 days by mean sac diameter (use before 6 weeks gestation if crown-rump length not able to be measured), +/- 5 days by crown-rump length (up to 8 weeks 6 days gestation), +/- 7 days by crown-rump length (up to 13 weeks 6 days gestation). Maternal organs: Bilateral ovaries are not visualized on this study.. Limited images through the kidneys demonstrate no hydronephrosis. IMPRESSION: Single live intrauterine gestation. heart rate is 153 beats per minute. Normal growth. Dictated by: Wilbert Fallon M.D. on 05/10/2019 at 19:00 [facility] Narrative Medical decision making narrative: Patient overall is feeling much better. He seemed to respond well to Reglan she was not vomiting here. Now tolerating oral fluids and is even hungry. Discharge Plan Departure Patient Disposition: Home Clinical Impression: UTI (urinary tract infection) during Qualifiers: Trimester: first trimester Qualified Code(s): O23.41 - Unspecified infection of urinary tract in , first trimester Discharge Date/Time: 05/10/19 19:41 Interventions: ED Discharge Assessment Last Done: 05/10/19 19:40 Instructions: DI for Urinary Tract Infection (UTI) Activity Restrictions/Additional Instructions: *You have been diagnosed with UTI in *What to do: Increased fluid intake, recommend Gatorade or Gatorade like products *Continue to take medications as directed Macrobid 100 mg twice a day for 14 days sent to [facility] in [place] *Follow up with your Ob tomorrow as previously scheduled *Return to ER if you should have persistent vomiting in bili to keep fluids down or any new, worsening or concerning symptoms Prescriptions: New nitrofurantoin monohyd/m-cryst [Macrobid] 100 mg capsule 100 mg PO Q12H Qty: 14 RF: 0 No Action albuterol sulfate [Ventolin HFA] 90 MCG/PUFF HFA aerosol inhaler 2 puff INH Q4HP PRN (Reason: Shortness Of Breath) Qty: 0 RF: 0 ipratropium bromide [Atrovent HFA] 12.9 GM HFA aerosol inhaler 1 puff INH BID Qty: 0 RF: 0 clindamycin phosphate 2 % cream 1 applicator VAG BEDTIME Qty: 70 RF: 0 prenat.vits,sisi,zbh-mszl-mobtk tablet 1 tab PO DAILY Qty: 30 RF: 0 Referrals: Charu Locke MD [Primary Care Provider] - Tico Cleveland MD [Physician] -
[2019-05-10 17:58] LABS: Add Manual Diff / Slide Review NO; Basophils Absolute Auto 0 /uL (0-100); Basophils Percent Auto 0.4 % (0-2); Eosinophils Absolute Auto 100 /uL (0-450); Eosinophils Percent Auto 0.8 % (2-4); Hematocrit 39.3 % (36-46); Hemoglobin 13.5 g/dL (12.0-16.0); Lymphocytes Absolute Auto 2200 /uL (1100-4500); Lymphocytes Percent Auto 25.7 % (25-40); Mean Corpuscular HGB Conc 34.2 % (30-36); Mean Corpuscular Hemoglobin 28.5 PG (26-34); Mean Corpuscular Volume 83.3 fL (80-100); Monocytes Absolute Auto 500 /uL (0-900); Monocytes Percent Auto 5.4 % (3-14); Neutrophils Absolute Auto 5800 /uL (1500-7000); Neutrophils Percent Auto 67.7 % (50-75); Platelet Count 258 X10^3/uL (150-400); Red Blood Cell Count 4.73 X10^6/uL (4.0-5.2); White Blood Cell Count 8.5 X10^3/uL (4.5-11.0)
[2019-05-10 18:07] LABS: Alanine Aminotransferase 21 IU/L (9-52); Albumin 4.2 g/dL (3.5-5.0); Albumin Globulin Ratio 1.2 (1.0-2.8); Alkaline Phosphatase 62 U/L (38-126); Aspartate Aminotransferase 23 IU/L (14-36); Bilirubin Total 0.4 mg/dL (0.2-1.3); Blood Urea Nitrogen 8 mg/dL (7-17); Calcium 9.5 mg/dL (8.4-10.2); Carbon Dioxide 21 mmol/L (22-32); Chloride 106 mmol/L (98-107); Estimated Glomerular Filt Rate > 60.0 mL/min (>60); Globulin 3.4 g/dL (1.7-4.1); Glucose 114 mg/dL (70-100); HEMOLYSIS < 15 (0-50); Potassium 3.7 mmol/L (3.4-5.1); Sodium 138 mmol/L (137-145); Total Protein 7.6 g/dL (6.3-8.2)
--- NOTE | 2019-05-10 18:10 | DI.US.S_ITS ---
PROCEDURE: US OB <= 14 WEEKS FETUS INDICATIONS: CRAMPING OUTSIDE/PRIOR DATING DATA: Last menstrual period (LMP): 02/19/19. LMP-based estimated date of delivery (HIEN): 11/26/19. First dating scan (date and location): 04/11/19. Estimated date of delivery (HIEN) from first dating scan: 12/02/19. TECHNIQUE: Real-time scanning was performed of the fetus and maternal pelvic organs, with image documentation. Endovaginal scanning was also performed to better visualize the fetus and maternal ovaries. COMPARISON: [facility], , OB <= 14 WEEKS FETUS, 04/16/2019, 9:29. FINDINGS: Embryo: Gestational sac is noted within the endometrium with fetus seen. [place]-rump length measures 4.3 cm. Estimated gestational age based on current study is 11 weeks one day. Estimated gestational age based on initial study is 10 weeks 4 days. heart rate is 153 beats per minute. Measurement variability in dating: +/- 4 weeks by LMP, +/- 7 days by mean sac diameter (use before 6 weeks gestation if crown-rump length not able to be measured), +/- 5 days by crown-rump length (up to 8 weeks 6 days gestation), +/- 7 days by crown-rump length (up to 13 weeks 6 days gestation). Maternal organs: Bilateral ovaries are not visualized on this study.. Limited images through the kidneys demonstrate no hydronephrosis. IMPRESSION: Single live intrauterine gestation. heart rate is 153 beats per minute. Normal growth. Dictated by: Wilbert Fallon M.D. on 05/10/2019 at 19:00 Approved by: Wilbert Fallon M.D. on 05/10/2019 at 19:02
[2019-05-10] MEDS: METOCLOPRAMIDE 10 MG/2 ML INJ IV (18:11)
[2019-05-10 18:27] VITALS: BP 127/61; PULSE 76; O2SAT 98
[2019-05-10 19:36] LABS: RBC Urine None Seen (0-5/HPF)
[2019-05-10 19:40] VITALS: BP 121/72; PULSE 77; RESP 16; TEMP 36.8; O2SAT 99
[2019-05-10 19:52] LABS: Squamous Epithelial Cell Urine 0-1 /HPF (0-5/HPF); WBC Urine 1-5/HPF (0-5/HPF)
[2019-05-10 19:53] LABS: Amorphous Sediment Urine 3+; Bacteria Urine Few (2-10); Culture Indicated Urine Specimen Cultured; Mucus Urine 1+ (Negative)
== END 2019-05-10 19:41 | disposition home or self-care (01) ==
PROVIDERS: Emergency Medicine; Emergency Provider Emergency Medicine; PCP Obstetrics & Gynecology
DX: O23.41 Unspecified infection of urinary tract in pregnancy, first trimester (principal); Z3A.10 10 weeks gestation of pregnancy
CPT/HCPCS: 36591; 76801; 76817; 80053; 81003; 81015; 85025; 87086; 96361; 96374; 99283; 99284; J2765

== ENCOUNTER → 2019-05-22 10:41 | Outpatient (CLI) | payer OTHER, MEDICAID, SELFPAY ==
[2019-05-26 08:20] LABS: Sequential Screen 1st Trimeste FINAL RESULT PENDING
== END ==
DX: Z36.0 Encounter for antenatal screening for chromosomal anomalies (principal)
CPT/HCPCS: 36415; 84163; 84702

== ENCOUNTER 2019-06-06 23:43 | Emergency (ER) | payer OTHER, MEDICAID, SELFPAY ==
[2019-06-06 23:48] VITALS: BP 135/72; PULSE 89; RESP 16; TEMP 37.4; O2SAT 95; BMI 32.1
[2019-06-07] MEDS: SODIUM CHLORIDE 0.9% 1,000 ML 1000 ML IV (00:36)
[2019-06-07 00:37] LABS: RBC Urine 1-5/HPF (0-5/HPF); Squamous Epithelial Cell Urine 5-10 /HPF (0-5/HPF); WBC Urine 1-5/HPF (0-5/HPF)
[2019-06-07 00:38] LABS: Bacteria Urine Few (2-10); Culture Indicated Urine Cult Not Indicated; Mucus Urine 1+ (Negative)
[2019-06-07 00:41] LABS: Ictotest Urine Negative (Negative)
[2019-06-07 00:42] LABS: Add Manual Diff / Slide Review NO; Basophils Absolute Auto 0 /uL (0-100); Basophils Percent Auto 0.3 % (0-2); Eosinophils Absolute Auto 200 /uL (0-450); Eosinophils Percent Auto 1.9 % (2-4); Hematocrit 34.9 % (36-46); Hemoglobin 12.1 g/dL (12.0-16.0); Lymphocytes Absolute Auto 2400 /uL (1100-4500); Lymphocytes Percent Auto 29.9 % (25-40); Mean Corpuscular HGB Conc 34.8 % (30-36); Mean Corpuscular Volume 83.5 fL (80-100); Monocytes Absolute Auto 400 /uL (0-900); Monocytes Percent Auto 5.2 % (3-14); Neutrophils Absolute Auto 5100 /uL (1500-7000); Neutrophils Percent Auto 62.7 % (50-75); Platelet Count 236 X10^3/uL (150-400); Red Blood Cell Count 4.18 X10^6/uL (4.0-5.2); Red Cell Distribution Width 13.4 % (11.6-14.8); White Blood Cell Count 8.1 X10^3/uL (4.5-11.0)
[2019-06-07 00:50] LABS: Alanine Aminotransferase 16 IU/L (9-52); Albumin 3.4 g/dL (3.5-5.0); Albumin Globulin Ratio 1.1 (1.0-2.8); Alkaline Phosphatase 56 U/L (38-126); Aspartate Aminotransferase 20 IU/L (14-36); Bilirubin Total 0.2 mg/dL (0.2-1.3); Blood Urea Nitrogen 9 mg/dL (7-17); Calcium 9.1 mg/dL (8.4-10.2); Carbon Dioxide 22 mmol/L (22-32); Chloride 105 mmol/L (98-107); Estimated Glomerular Filt Rate > 60.0 mL/min (>60); Globulin 3.2 g/dL (1.7-4.1); Glucose 98 mg/dL (70-100); HEMOLYSIS < 15 (0-50); Potassium 3.4 mmol/L (3.4-5.1); Sodium 135 mmol/L (137-145); Total Protein 6.6 g/dL (6.3-8.2)
--- NOTE | 2019-06-07 01:32 | ED.PREGNANCY ---
HPI - General Chief complaint: Urogenital-Female Stated complaint: 15 weeks thinks kidney infection,dehydrat Time Seen by Provider: 06/06/19 23:46 Source: patient and old records reviewed Mode of arrival: ambulatory Limitations: no limitations History of Present Illness HPI Narrative: Patient is a 18-year-old female presenting with multiple complaints. She has been in the ER multiple times for abdominal pain and kidney infections. She thinks she may have 1 again. She has low back pain which she says is constant she has got some pain in her pelvic area ongoing for 3 days. She denies any vaginal bleeding. She has no fevers. She denies any nausea or vomiting but has had slightly decreased intake. She says she certainly is not drinking enough water. MD Complaint: abdominal pain Related Data Home Medications Medication Instructions Recorded Confirmed albuterol sulfate [Ventolin HFA] 2 puff INH Q4HP PRN #0 02/27/17 03/02/19 ipratropium bromide [Atrovent HFA] 1 puff INH BID #0 02/27/17 03/02/19 Previous Rx's Medication Instructions Recorded prenat.vits,sisi,nwu-oiml-fdgro 1 tab PO DAILY #30 tab 03/25/19 clindamycin 2 % vaginal cream 1 applicator VAG BEDTIME #70 gram 04/17/19 nitrofurantoin monohyd/m-cryst 100 mg PO Q12H #14 cap 05/10/19 [Macrobid] metoclopramide 10 mg tablet 10 mg PO Q6H PRN #20 tab 05/11/19 Allergies Allergy/AdvReac Type Severity Reaction Status Date / Time sertraline [From ZOLOFT] Allergy Unknown Hives Verified 05/10/19 16:34 Review of Systems Review of Systems ROS Unobtainable: All systems reviewed & are unremarkable except as noted in HPI and below Eyes Denies change in vision, Denies eye discharge, Denies irritation and Denies loss of vision ENT Ears, Nose, Mouth, and Throat: Denies change in voice, Denies neck pain and Denies sore throat Cardiovascular Denies chest pain, Denies irregular heart rhythm, Denies lightheadedness, Denies palpitations, Denies dyspnea, Denies dyspnea on exertion and Denies orthopnea Respiratory Denies cough, Denies dyspnea, Denies dyspnea on exertion and Denies wheezing Gastrointestinal Gastrointestinal: Reports as per HPI Genitourinary Reports as per HPI Musculoskeletal Denies neck pain Integumentary/Breasts Denies pruritus, Denies erythema, Denies rash and Denies wounds Neurologic Denies loss of vision Endocrine Denies palpitations Allergic/Immunologic Denies wheezing PMFSH - Past Medical History Medical history: Reports no medical history Surgical history: Reports no surgical history Exam Initial Vital Signs Initial Vital Signs: Vital Signs Temperature 99.3 F 06/06/19 23:48 Pulse Rate 89 06/06/19 23:48 Respiratory Rate 16 06/06/19 23:48 Blood Pressure 135/72 06/06/19 23:48 Pulse Oximetry 95 06/06/19 23:48 GENERAL: Well-appearing, well-nourished and in no acute distress. HEENT: Head atraumatic,EOMI, pupils reactive, face symmetric, moist mucous membranes CARDIOVASCULAR: Regular rate and rhythm without murmurs, rubs or gallops. RESPIRATORY: Breath sounds equal bilaterally, no wheezes rales or rhonchi. ABDOMEN: Soft, gravid, nontender. Normoactive bowel sounds all 4 quadrants. No guarding or rebound EXTREMITIES: Normal range of motion, no clubbing or edema. Neurovascularly intact NEUROLOGICAL: Alert and oriented x4.Normal gait and speech. Cranial nerves II through XII grossly intact. SKIN: Warm, dry, no laceration, no petechiae, no rashes or lesions. Course Orders Ordered: ED Orders 06/06/19 23:58 Ictotest Urine Stat 06/07/19 00:32 Urine Microscopic Stat 06/07/19 00:36 Complete Blood Count AUTO DIFF Stat Comprehensive Metabolic Panel Stat Discontinued Medications Sodium Chloride (Normal Saline 0.9%) 1,000 mls @ 1,000 mls/hr IV BOLUS ONE Stop: 06/07/19 01:10 Last Infusion: 06/07/19 01:31 Dose: 0 mls/hr Admin: 06/07/19 00:36 Dose: 1,000 mls/hr Vital Signs - 8 hr 06/06/19 23:48 06/07/19 01:56 Temperature 99.3 F 98.5 F Pulse Rate 89 71 Respiratory Rate 16 16 Blood Pressure 135/72 133/73 Pulse Oximetry 95 98 MDM - OB/Uterine Contractions Lab Data Attestation: I reviewed the patient's lab results. Result diagrams: 06/07/19 00:36 06/07/19 00:36 Lab Results 06/06/19 06/06/19 06/07/19 Range/Units 23:58 23:58 00:36 WBC 8.1 (4.5-11.0) X10^3/uL RBC 4.18 (4.0-5.2) X10^6/uL Hgb 12.1 (12.0-16.0) g/dL Hct 34.9 L (36-46) % MCV 83.5 (80-100) fL MCH 29.0 (26-34) PG MCHC 34.8 (30-36) % RDW 13.4 (11.6-14.8) % Plt Count 236 (150-400) X10^3/uL Neut % (Auto) 62.7 (50-75) % Lymph % (Auto) 29.9 (25-40) % [place] % (Auto) 5.2 (3-14) % Eos % (Auto) 1.9 L (2-4) % Baso % (Auto) 0.3 (0-2) % Neut # (Auto) 5100 (8273-7599) /uL Lymph # (Auto) 2400 (7252-7868) /uL [place] # (Auto) 400 (0-900) /uL Eos # (Auto) 200 (0-450) /uL Baso # (Auto) 0 (0-100) /uL Sodium (137-145) mmol/L Potassium (3.4-5.1) mmol/L Chloride (98-107) mmol/L Carbon Dioxide (22-32) mmol/L BUN (7-17) mg/dL Creatinine (0.52-1.04) mg/dL Estimated GFR (>60) mL/min BUN/Creatinine Ratio (6-22) Glucose (70-100) mg/dL Calcium (8.4-10.2) mg/dL Total Bilirubin (0.2-1.3) mg/dL AST (14-36) IU/L ALT (9-52) IU/L Alkaline Phosphatase (38-126) U/L Total Protein (6.3-8.2) g/dL Albumin (3.5-5.0) g/dL Globulin (1.7-4.1) g/dL Albumin/Globulin Ratio (1.0-2.8) Urine Ictotest Negative (Negative) Urine RBC 1-5/hpf (0-5/HPF) Urine WBC 1-5/hpf (0-5/HPF) Ur Squamous Epith Cells 5-10 /hpf H (0-5/HPF) Urine Bacteria Few (2-10) H (None) Urine Mucus 1+ H (Negative) Ur Culture Indicated? Cult not indicated 06/07/19 Range/Units 00:36 WBC (4.5-11.0) X10^3/uL RBC (4.0-5.2) X10^6/uL Hgb (12.0-16.0) g/dL Hct (36-46) % MCV (80-100) fL MCH (26-34) PG MCHC (30-36) % RDW (11.6-14.8) % Plt Count (150-400) X10^3/uL Neut % (Auto) (50-75) % Lymph % (Auto) (25-40) % [place] % (Auto) (3-14) % Eos % (Auto) (2-4) % Baso % (Auto) (0-2) % Neut # (Auto) (2173-7261) /uL Lymph # (Auto) (6106-9914) /uL [place] # (Auto) (0-900) /uL Eos # (Auto) (0-450) /uL Baso # (Auto) (0-100) /uL Sodium 135 L (137-145) mmol/L Potassium 3.4 (3.4-5.1) mmol/L Chloride 105 (98-107) mmol/L Carbon Dioxide 22 (22-32) mmol/L BUN 9 (7-17) mg/dL Creatinine 0.50 L (0.52-1.04) mg/dL Estimated GFR > 60.0 (>60) mL/min BUN/Creatinine Ratio 18.0 (6-22) Glucose 98 (70-100) mg/dL Calcium 9.1 (8.4-10.2) mg/dL Total Bilirubin 0.2 (0.2-1.3) mg/dL AST 20 (14-36) IU/L ALT 16 (9-52) IU/L Alkaline Phosphatase 56 (38-126) U/L Total Protein 6.6 (6.3-8.2) g/dL Albumin 3.4 L (3.5-5.0) g/dL Globulin 3.2 (1.7-4.1) g/dL Albumin/Globulin Ratio 1.1 (1.0-2.8) Urine Ictotest (Negative) Urine RBC (0-5/HPF) Urine WBC (0-5/HPF) Ur Squamous Epith Cells (0-5/HPF) Urine Bacteria (None) Urine Mucus (Negative) Ur Culture Indicated? Urine Dip Bedside Urine Glucose Negative Bedside Urine Bilirubin + 1 Bedside Urine Ketone - Negative Urine Specific [place] 1.010 Bedside Urine Occult Blood +/- Bedside Urine pH 6.5 Bedside Urine Protein +/- 15 Bedside Urine Urobilinogen +/- 1mg Bedside Urine Nitrite - Negative Bedside Urine Leukocytes +/- 15 Esterase MDM Narrative Medical decision making narrative: Patient received 1 L of IV fluids blood work reassuring no sign of UTI at this time. She is still having some discomfort but overall feeling okay. She has no vaginal bleeding. She has had multiple ER ultrasounds along with clinic ultrasounds which have shown normal growth. At this time I think her pain and discomfort is likely due to . She is offered on ultrasound again however she declines at this time. Recommended if she started bleeding or having severe pain to return to the ED. Discharge Plan Departure Patient Disposition: Home Clinical Impression: Abdominal pain affecting Discharge Date/Time: 06/07/19 01:56 Interventions: ED Discharge Assessment Last Done: 06/07/19 01:56 Instructions: DI for -- Discomforts and Remedies Activity Restrictions/Additional Instructions: *You have been diagnosed with back pain pelvic pain with *What to do: At this time it is suspected this is normal pain for you. Blood work and urine do not show any sort of infection. You had multiple normal ultrasounds and at this time declined ultrasound today. *Continue to take medications as directed *Follow up with your primary care provider in 2-3 days *Return to ER if you should have increasing pelvic pain and vaginal bleeding or any new, worsening or concerning symptoms Prescriptions: No Action albuterol sulfate [Ventolin HFA] 90 MCG/PUFF HFA aerosol inhaler 2 puff INH Q4HP PRN (Reason: Shortness Of Breath) Qty: 0 RF: 0 ipratropium bromide [Atrovent HFA] 12.9 GM HFA aerosol inhaler 1 puff INH BID Qty: 0 RF: 0 clindamycin phosphate 2 % cream 1 applicator VAG BEDTIME Qty: 70 RF: 0 metoclopramide HCl [Reglan] 10 mg tablet 10 mg PO Q6H PRN (Reason: nausea and vomiting) Qty: 20 RF: 2 prenat.vits,sisi,mdv-ters-qmelc tablet 1 tab PO DAILY Qty: 30 RF: 0 nitrofurantoin monohyd/m-cryst [Macrobid] 100 mg capsule 100 mg PO Q12H Qty: 14 RF: 0 Referrals: Tico Cleveland MD [Physician] -
--- NOTE | 2019-06-07 01:37 | ED_ITS ---
HPI - General Chief complaint: Urogenital-Female Stated complaint: 15 weeks thinks kidney infection,dehydrat Time Seen by Provider: 06/06/19 23:46 Source: patient and old records reviewed Mode of arrival: ambulatory Limitations: no limitations History of Present Illness HPI Narrative: Patient is a 18-year-old female presenting with multiple complaints. She has been in the ER multiple times for abdominal pain and kidney infections. She thinks she may have 1 again. She has low back pain which she says is constant she has got some pain in her pelvic area ongoing for 3 days. She denies any vaginal bleeding. She has no fevers. She denies any nausea or vomiting but has had slightly decreased intake. She says she certainly is not drinking enough water. MD Complaint: abdominal pain Related Data Home Medications Medication Instructions Recorded Confirmed albuterol sulfate [Ventolin HFA] 2 puff INH Q4HP PRN #0 02/27/17 03/02/19 ipratropium bromide [Atrovent HFA] 1 puff INH BID #0 02/27/17 03/02/19 Previous Rx's Medication Instructions Recorded prenat.vits,sisi,jyv-xzui-yagof 1 tab PO DAILY #30 tab 03/25/19 clindamycin 2 % vaginal cream 1 applicator VAG BEDTIME #70 gram 04/17/19 nitrofurantoin monohyd/m-cryst 100 mg PO Q12H #14 cap 05/10/19 [Macrobid] metoclopramide 10 mg tablet 10 mg PO Q6H PRN #20 tab 05/11/19 Allergies Allergy/AdvReac Type Severity Reaction Status Date / Time sertraline [From ZOLOFT] Allergy Unknown Hives Verified 05/10/19 16:34 Review of Systems Review of Systems ROS Unobtainable: All systems reviewed & are unremarkable except as noted in HPI and below Eyes Denies change in vision, Denies eye discharge, Denies irritation and Denies loss of vision ENT Ears, Nose, Mouth, and Throat: Denies change in voice, Denies neck pain and Denies sore throat Cardiovascular Denies chest pain, Denies irregular heart rhythm, Denies lightheadedness, Denies palpitations, Denies dyspnea, Denies dyspnea on exertion and Denies orthopnea Respiratory Denies cough, Denies dyspnea, Denies dyspnea on exertion and Denies wheezing Gastrointestinal Gastrointestinal: Reports as per HPI Genitourinary Reports as per HPI Musculoskeletal Denies neck pain Integumentary/Breasts Denies pruritus, Denies erythema, Denies rash and Denies wounds Neurologic Denies loss of vision Endocrine Denies palpitations Allergic/Immunologic Denies wheezing PMFSH - Past Medical History Medical history: Reports no medical history Surgical history: Reports no surgical history Exam Initial Vital Signs Initial Vital Signs: Vital Signs Temperature 99.3 F 06/06/19 23:48 Pulse Rate 89 06/06/19 23:48 Respiratory Rate 16 06/06/19 23:48 Blood Pressure 135/72 06/06/19 23:48 Pulse Oximetry 95 06/06/19 23:48 GENERAL: Well-appearing, well-nourished and in no acute distress. HEENT: Head atraumatic,EOMI, pupils reactive, face symmetric, moist mucous memb ranes CARDIOVASCULAR: Regular rate and rhythm without murmurs, rubs or gallops. RESPIRATORY: Breath sounds equal bilaterally, no wheezes rales or rhonchi. ABDOMEN: Soft, gravid, nontender. Normoactive bowel sounds all 4 quadrants. No guarding or rebound EXTREMITIES: Normal range of motion, no clubbing or edema. Neurovascularly intact NEUROLOGICAL: Alert and oriented x4.Normal gait and speech. Cranial nerves II through XII grossly intact. SKIN: Warm, dry, no laceration, no petechiae, no rashes or lesions. Course Orders Ordered: ED Orders 06/06/19 23:58 Ictotest Urine Stat 06/07/19 00:32 Urine Microscopic Stat 06/07/19 00:36 Complete Blood Count AUTO DIFF Stat Comprehensive Metabolic Panel Stat Discontinued Medications Sodium Chloride (Normal Saline 0.9%) 1,000 mls @ 1,000 mls/hr IV BOLUS ONE Stop: 06/07/19 01:10 Last Infusion: 06/07/19 01:31 Dose: 0 mls/hr Admin: 06/07/19 00:36 Dose: 1,000 mls/hr Vital Signs - 8 hr 06/06/19 23:48 06/07/19 01:56 Temperature 99.3 F 98.5 F Pulse Rate 89 71 Respiratory Rate 16 16 Blood Pressure 135/72 133/73 Pulse Oximetry 95 98 MDM - OB/Uterine Contractions Lab Data Attestation: I reviewed the patient's lab results. Result diagrams: 06/07/19 00:36 06/07/19 00:36 Lab Results 06/06/19 06/06/19 06/07/19 Range/Units 23:58 23:58 00:36 WBC 8.1 (4.5-11.0) X10^3/uL RBC 4.18 (4.0-5.2) X10^6/uL Hgb 12.1 (12.0-16.0) g/dL Hct 34.9 L (36-46) % MCV 83.5 (80-100) fL MCH 29.0 (26-34) PG MCHC 34.8 (30-36) % RDW 13.4 (11.6-14.8) % Plt Count 236 (150-400) X10^3/uL Neut % (Auto) 62.7 (50-75) % Lymph % (Auto) 29.9 (25-40) % [place] % (Auto) 5.2 (3-14) % Eos % (Auto) 1.9 L (2-4) % Baso % (Auto) 0.3 (0-2) % Neut # (Auto) 5100 (9360-6513) /uL Lymph # (Auto) 2400 (6436-3443) /uL [place] # (Auto) 400 (0-900) /uL Eos # (Auto) 200 (0-450) /uL Baso # (Auto) 0 (0-100) /uL Sodium (137-145) mmol/L Potassium (3.4-5.1) mmol/L Chloride (98-107) mmol/L Carbon Dioxide (22-32) mmol/L BUN (7-17) mg/dL Creatinine (0.52-1.04) mg/dL Estimated GFR (>60) mL/min BUN/Creatinine Ratio (6-22) Glucose (70-100) mg/dL Calcium (8.4-10.2) mg/dL Total Bilirubin (0.2-1.3) mg/dL AST (14-36) IU/L ALT (9-52) IU/L Alkaline Phosphatase (38-126) U/L Total Protein (6.3-8.2) g/dL Albumin (3.5-5.0) g/dL Globulin (1.7-4.1) g/dL Albumin/Globulin Ratio (1.0-2.8) Urine Ictotest Negative (Negative) Urine RBC 1-5/hpf (0-5/HPF) Urine WBC 1-5/hpf (0-5/HPF) Ur Squamous Epith Cells 5-10 /hpf H (0-5/HPF) Urine Bacteria Few (2-10) H (None) Urine Mucus 1+ H (Negative) Ur Culture Indicated? Cult not indicated 06/07/19 Range/Units 00:36 WBC (4.5-11.0) X10^3/uL RBC (4.0-5.2) X10^6/uL Hgb (12.0-16.0) g/dL Hct (36-46) % MCV (80-100) fL MCH (26-34) PG MCHC (30-36) % RDW (11.6-14.8) % Plt Count (150-400) X10^3/uL Neut % (Auto) (50-75) % Lymph % (Auto) (25-40) % [place] % (Auto) (3-14) % Eos % (Auto) (2-4) % Baso % (Auto) (0-2) % Neut # (Auto) (2266-5059) /uL Lymph # (Auto) (3621-3661) /uL [place] # (Auto) (0-900) /uL Eos # (Auto) (0-450) /uL Baso # (Auto) (0-100) /uL Sodium 135 L (137-145) mmol/L Potassium 3.4 (3.4-5.1) mmol/L Chloride 105 (98-107) mmol/L Carbon Dioxide 22 (22-32) mmol/L BUN 9 (7-17) mg/dL Creatinine 0.50 L (0.52-1.04) mg/dL Estimated GFR > 60.0 (>60) mL/min BUN/Creatinine Ratio 18.0 (6-22) Glucose 98 (70-100) mg/dL Calcium 9.1 (8.4-10.2) mg/dL Total Bilirubin 0.2 (0.2-1.3) mg/dL AST 20 (14-36) IU/L ALT 16 (9-52) IU/L Alkaline Phosphatase 56 (38-126) U/L Total Protein 6.6 (6.3-8.2) g/dL Albumin 3.4 L (3.5-5.0) g/dL Globulin 3.2 (1.7-4.1) g/dL Albumin/Globulin Ratio 1.1 (1.0-2.8) Urine Ictotest (Negative) Urine RBC (0-5/HPF) Urine WBC (0-5/HPF) Ur Squamous Epith Cells (0-5/HPF) Urine Bacteria (None) Urine Mucus (Negative) Ur Culture Indicated? Urine Dip Bedside Urine Glucose Negative Bedside Urine Bilirubin + 1 Bedside Urine Ketone - Negative Urine Specific [place] 1.010 Bedside Urine Occult Blood +/- Bedside Urine pH 6.5 Bedside Urine Protein +/- 15 Bedside Urine Urobilinogen +/- 1mg Bedside Urine Nitrite - Negative Bedside Urine Leukocytes +/- 15 Esterase MDM Narrative Medical decision making narrative: Patient received 1 L of IV fluids blood work reassuring no sign of UTI at this time. She is still having some discomfort but overall feeling okay. She has no vaginal bleeding. She has had multiple ER ultrasounds along with clinic ultrasounds which have shown normal growth. At this time I think her pain and discomfort is likely due to . She is offered on ultrasound again however she declines at this time. Recommended if she started bleeding or having severe pain to return to the ED. Discharge Plan Departure Patient Disposition: Home Clinical Impression: Abdominal pain affecting Discharge Date/Time: 06/07/19 01:56 Interventions: ED Discharge Assessment Last Done: 06/07/19 01:56 Instructions: DI for -- Discomforts and Remedies Activity Restrictions/Additional Instructions: *You have been diagnosed with back pain pelvic pain with *What to do: At this time it is suspected this is normal pain for you. Blood work and urine do not show any sort of infection. You had multiple normal ultrasounds and at this time declined ultrasound today. *Continue to take medications as directed *Follow up with your primary care provider in 2-3 days *Return to ER if you should have increasing pelvic pain and vaginal bleeding or any new, worsening or concerning symptoms Prescriptions: No Action albuterol sulfate [Ventolin HFA] 90 MCG/PUFF HFA aerosol inhaler 2 puff INH Q4HP PRN (Reason: Shortness Of Breath) Qty: 0 RF: 0 ipratropium bromide [Atrovent HFA] 12.9 GM HFA aerosol inhaler 1 puff INH BID Qty: 0 RF: 0 clindamycin phosphate 2 % cream 1 applicator VAG BEDTIME Qty: 70 RF: 0 metoclopramide HCl [Reglan] 10 mg tablet 10 mg PO Q6H PRN (Reason: nausea and vomiting) Qty: 20 RF: 2 prenat.vits,sisi,nvx-hwuc-oihgd tablet 1 tab PO DAILY Qty: 30 RF: 0 nitrofurantoin monohyd/m-cryst [Macrobid] 100 mg capsule 100 mg PO Q12H Qty: 14 RF: 0 Referrals: Tico Cleveland MD [Physician] -
[2019-06-07 01:56] VITALS: BP 133/73; PULSE 71; RESP 16; TEMP 36.9; O2SAT 98
== END 2019-06-07 01:56 | disposition home or self-care (01) ==
PROVIDERS: Emergency Provider Emergency Medicine
DX: O26.892 Other specified pregnancy related conditions, second trimester (principal); Z3A.15 15 weeks gestation of pregnancy
CPT/HCPCS: 36591; 80053; 81003; 81015; 85025; 96360; 99283

== ENCOUNTER → 2019-06-26 12:19 | Outpatient (CLI) | payer OTHER, MEDICAID, SELFPAY ==
[2019-06-29 07:31] LABS: Sequential Screen 2nd Trimeste SCREEN NEGATIVE
== END ==
DX: Z34.82 Encounter for supervision of other normal pregnancy, second trimester (principal)
CPT/HCPCS: 36415; 82105; 82677; 84163; 84702; 86336

== ENCOUNTER 2019-06-26 22:00 | Emergency (ER) | payer OTHER, MEDICAID, SELFPAY ==
[2019-06-26 22:00] VITALS: BP 156/89; PULSE 91; RESP 18; TEMP 37.1; O2SAT 97; BMI 32.8
--- NOTE | 2019-06-26 22:22 | ED.ABDPAIN ---
HPI - Abdominal Pain General Chief Complaint: Abdominal Pain Stated Complaint: 17 WKS LEFT ABD PAIN Time Seen by Provider: 06/26/19 22:01 Source: patient Mode of arrival: ambulatory Limitations: no limitations History of Present Illness HPI narrative: 18-year-old female who is 17 weeks EGA. Is complaining of left-sided abdominal pain. She states she has had the symptoms for while. She has talked with her OB doctor about the symptoms however she feels like her OB doctor is not addressed them. She states she does get frequent urinary tract infections and bacterial vaginosis. She does have some vaginal discharge but no vaginal bleeding. No cramping. No vomiting. Related Data Home Medications Medication Instructions Recorded Confirmed albuterol sulfate [Ventolin HFA] 2 puff INH Q4HP PRN #0 02/27/17 03/02/19 ipratropium bromide [Atrovent HFA] 1 puff INH BID #0 02/27/17 03/02/19 Previous Rx's Medication Instructions Recorded prenat.vits,sisi,dci-eubx-esypc 1 tab PO DAILY #30 tab 03/25/19 clindamycin 2 % vaginal cream 1 applicator VAG BEDTIME #70 gram 04/17/19 nitrofurantoin monohyd/m-cryst 100 mg PO Q12H #14 cap 05/10/19 [Macrobid] metoclopramide 10 mg tablet 10 mg PO Q6H PRN #20 tab 05/11/19 docusate sodium [Colace] 100 mg PO BID PRN #14 cap 06/26/19 Allergies Allergy/AdvReac Type Severity Reaction Status Date / Time sertraline [From ZOLOFT] Allergy Unknown Hives Verified 05/10/19 16:34 Review of Systems Constitutional Denies fever(s) Gastrointestinal Gastrointestinal: Reports abdominal pain, Denies change in stool character, Denies cramping, Denies nausea and Denies vomiting Genitourinary Denies dysuria, Denies pelvic pain, Denies urinary urgency and Reports vaginal discharge Integumentary/Breasts Denies rash Hematologic/Lymphatic Denies easy bleeding and Denies easy bruising [facility] Medical History 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) General counselling and advice on contraception (Resolved) Pyelonephritis (Chronic) Dysmenorrhea (Inactive) Menorrhagia (Inactive) Social History Smoking Status: Never smoker Exam Initial Vital Signs Initial Vital Signs: Vital Signs Temperature 98.8 F 06/26/19 22:00 Pulse Rate 91 H 06/26/19 22:00 Respiratory Rate 18 06/26/19 22:00 Blood Pressure 156/89 H 06/26/19 22:00 Pulse Oximetry 97 06/26/19 22:00 Const General: cooperative, healthy appearing, comfortable, well developed, well groomed and No acute distress Orientation: alert and awake Resp Effort & Inspection: normal respiratory effort Auscultation: clear to auscultation bilaterally Cardio Rate: regular rate Rhythm: regular rhythm GI Inspection: non-distended Palpation: soft, No firm and tender (Left flank) Speculum Exam - Vagina: normal appearance of the vagina, normal vaginal discharge and No vaginal bleeding Speculum Exam - Cervix: normal appearance of the cervix and closed cervix OB/External & Speculum: No vaginal bleeding Skin Lesions: no lesions Rashes: no rashes Extrem General: normal to inspection and capillary refill normal Psych Appearance: grossly normal and well kempt Course Orders Ordered: ED Orders 06/26/19 22:34 BREE Prep Stat Wet Prep Tric BV Tigist Stat Vital Signs - 8 hr 06/26/19 22:00 06/26/19 23:00 Temperature 98.8 F 98.5 F Pulse Rate 91 H 79 Respiratory Rate 18 16 Blood Pressure 156/89 H Blood Pressure [Right Arm] 129/69 Pulse Oximetry 97 98 MDM - Abdominal Pain Lab Data Attestation: I reviewed the patient's lab results. Point of care testing: Urine Dip Bedside Urine Glucose Negative Bedside Urine Bilirubin + 1 Bedside Urine Ketone +/- 5 Urine Specific [place] 1.030 Bedside Urine Occult Blood - Negative Bedside Urine pH 6 Bedside Urine Protein + 30 Bedside Urine Urobilinogen +/- 1mg Bedside Urine Nitrite - Negative Bedside Urine Leukocytes - Negative Esterase MDM Narrative Medical decision making narrative: Urine is negative, BREE wet prep were negative. She has no other OB complaints. heart tones 140s. No indication for antibiotics. Suspect that this is related abdominal pain. Discussed return precautions and follow-up instructions. She expressed understanding and agreement with plan. Discharge Plan Departure Patient Disposition: Home Clinical Impression: Abdominal pain during Qualifiers: Trimester: second trimester Qualified Code(s): O26.892 - Other specified related conditions, second trimester Qualifiers: Weeks of gestation: 17 weeks Qualified Code(s): Z3A.17 - 17 weeks gestation of Discharge Date/Time: 06/26/19 23:40 Interventions: ED Discharge Assessment Last Done: 06/26/19 23:45 Instructions: DI for Abdominal Pain -- Early Activity Restrictions/Additional Instructions: Continue with all of your medications. Keep all of you scheduled medical appointments. Recommend that you continue to increase your fluid intake. You can take the stool softeners as needed for any constipation. Call your OB provider on Saturday. Return to the emergency department for any new or worsening symptoms Prescriptions: New docusate sodium [Colace] 100 mg capsule 100 mg PO BID PRN (Reason: constipation) Qty: 14 RF: 0 No Action albuterol sulfate [Ventolin HFA] 90 MCG/PUFF HFA aerosol inhaler 2 puff INH Q4HP PRN (Reason: Shortness Of Breath) Qty: 0 RF: 0 ipratropium bromide [Atrovent HFA] 12.9 GM HFA aerosol inhaler 1 puff INH BID Qty: 0 RF: 0 clindamycin phosphate 2 % cream 1 applicator VAG BEDTIME Qty: 70 RF: 0 metoclopramide HCl [Reglan] 10 mg tablet 10 mg PO Q6H PRN (Reason: nausea and vomiting) Qty: 20 RF: 2 prenat.vits,sisi,orc-nvqt-kbkyc tablet 1 tab PO DAILY Qty: 30 RF: 0 nitrofurantoin monohyd/m-cryst [Macrobid] 100 mg capsule 100 mg PO Q12H Qty: 14 RF: 0
[2019-06-26 23:00] VITALS: BP 129/69; PULSE 79; RESP 16; TEMP 36.9; O2SAT 98
--- NOTE | 2019-06-26 23:03 | PC.NURSE ---
FHT's 140's with accelerations.
== END 2019-06-26 23:40 | disposition home or self-care (01) ==
PROVIDERS: Emergency Provider Emergency Medicine
DX: O26.892 Other specified pregnancy related conditions, second trimester (principal); Z3A.17 17 weeks gestation of pregnancy
CPT/HCPCS: 36415; 81003; 82105; 82677; 84163; 84702; 86336; 87210; 87220; 99282; 99283

== ENCOUNTER 2019-07-12 18:16 | Outpatient (CLI) | payer OTHER, MEDICAID, SELFPAY | END 2019-07-12 18:50 | disposition home or self-care (01) | LOC: OB 07-14 11:04 | DX: Z34.03 Encounter for supervision of normal first pregnancy, third trimester (principal); Z3A.19 19 weeks gestation of pregnancy | CPT/HCPCS: G0378; G0379 ==

== ENCOUNTER 2019-08-03 22:01 | Emergency (ER) | payer OTHER, MEDICAID, SELFPAY ==
[2019-08-03 22:02] VITALS: BP 143/87; PULSE 129; RESP 18; TEMP 37.2; O2SAT 98; BMI 34.2
[2019-08-03 22:30] VITALS: BP 113/70; BP 89/57; PULSE 97; PULSE 99; RESP 19; RESP 21; O2SAT 100; O2SAT 95
[2019-08-03] MEDS: ONDANSETRON 4 MG/2 ML INJ IV (22:31)
[2019-08-03] MEDS: SODIUM CHLORIDE 0.9% 1,000 ML 1000 ML IV (22:31)
[2019-08-03 23:00] VITALS: BP 128/76; PULSE 96; RESP 17; O2SAT 97
[2019-08-03 23:21] LABS: Add Manual Diff / Slide Review NO; Basophils Absolute Auto 0 /uL (0-100); Basophils Percent Auto 0.3 % (0-2); Eosinophils Absolute Auto 100 /uL (0-450); Eosinophils Percent Auto 0.6 % (2-4); Hematocrit 34.6 % (36-46); Hemoglobin 12.1 g/dL (12.0-16.0); Lymphocytes Absolute Auto 2200 /uL (1100-4500); Lymphocytes Percent Auto 20.7 % (25-40); Mean Corpuscular Hemoglobin 29.8 PG (26-34); Mean Corpuscular Volume 85.1 fL (80-100); Monocytes Absolute Auto 600 /uL (0-900); Monocytes Percent Auto 5.6 % (3-14); Neutrophils Absolute Auto 7800 /uL (1500-7000); Neutrophils Percent Auto 72.8 % (50-75); Platelet Count 319 X10^3/uL (150-400); Red Blood Cell Count 4.07 X10^6/uL (4.0-5.2); Red Cell Distribution Width 13.6 % (11.6-14.8); White Blood Cell Count 10.7 X10^3/uL (4.5-11.0)
[2019-08-03 23:22] LABS: Blood Urea Nitrogen 10 mg/dL (7-17); Calcium 9.3 mg/dL (8.4-10.2); Carbon Dioxide 22 mmol/L (22-32); Chloride 103 mmol/L (98-107); Estimated Glomerular Filt Rate > 60.0 mL/min (>60); Glucose 98 mg/dL (70-100); HEMOLYSIS 20 (0-50); Potassium 3.8 mmol/L (3.4-5.1); Sodium 136 mmol/L (137-145)
[2019-08-03 23:29] LABS: RBC Urine None Seen (0-5/HPF)
[2019-08-03 23:30] LABS: Appearance Urine UA CLOUDY; Bilirubin Urine UA 1+ (NEGATIVE); Color Urine UA YELLOW; Glucose Urine UA NEGATIVE (Negative); Ketones Urine UA 1+ (NEGATIVE); Leukocyte Esterase Urine UA TRACE (NEGATIVE); Nitrite Urine UA NEGATIVE (Negative); Occult Blood Urine UA NEGATIVE (Negative); Protein Urine UA 2+ (Negative); Specific Gravity Urine UA >=1.030 (1.000-1.035); Urobilinogen Urine UA 0.2 E.U./dL (0.2)
[2019-08-03 23:41] LABS: Urine Amphetamines Negative (Negative); Urine Barbiturates Negative (Negative); Urine Benzodiazepines Negative (Negative); Urine Cocaine Negative (Negative); Urine MDMA Negative (Negative); Urine Methadone Negative (Negative); Urine Methamphetamines Positive (Negative); Urine Morphine/Opi cutoff 2000 Negative (Negative); Urine Oxycodone Negative (Negative); Urine Phencyclidine Negative (Negative); Urine Tetrahydrocannabinol Positive (Negative); Urine Tricyclic Antidepressant Negative (Negative)
[2019-08-03 23:53] LABS: Ictotest Urine Negative (Negative); Squamous Epithelial Cell Urine 5-10 /HPF (0-5/HPF); WBC Urine 0-1/HPF (0-5/HPF)
[2019-08-03 23:54] LABS: Amorphous Sediment Urine 3+; Bacteria Urine Few (2-10); Culture Indicated Urine Cult Not Indicated; Mucus Urine 4+ (Negative)
--- NOTE | 2019-08-04 00:27 | ED_ITS ---
HPI - Syncope General Chief Complaint: Syncope Stated Complaint: PASSED OUT 23 WKS Time Seen by Provider: 08/03/19 22:14 Source: patient Mode of arrival: ambulatory Limitations: no limitations History of Present Illness HPI narrative: Patient comes emergency department complaining of a syncopal episode today. Patient has not been drinking much water throughout her , and states that she felt tired this weekend. Patient states that she has not had any fevers or chills, and has not recently been vomiting until today. Patient denies any diarrhea. No dysuria. No back pain or abdominal pain. She is 23 weeks , and states last time she felt baby move was several hours ago. Patient denies any vaginal bleeding or fluid leakage. Related Data Home Medications Medication Instructions Recorded Confirmed albuterol sulfate [Ventolin HFA] 2 puff INH Q4HP PRN #0 02/27/17 03/02/19 ipratropium bromide [Atrovent HFA] 1 puff INH BID #0 02/27/17 03/02/19 Previous Rx's Medication Instructions Recorded prenat.vits,sisi,lul-bwij-byxlg 1 tab PO DAILY #30 tab 03/25/19 clindamycin phosphate 2 % vaginal 1 applicator VAG BEDTIME #70 gram 04/17/19 cream nitrofurantoin monohyd/m-cryst 100 mg PO Q12H #14 cap 05/10/19 [Macrobid] metoclopramide HCl 10 mg tablet 10 mg PO Q6H PRN #20 tab 05/11/19 docusate sodium [Colace] 100 mg PO BID PRN #14 cap 06/26/19 ondansetron 4 mg PO Q6H PRN #10 tab 08/04/19 Allergies Allergy/AdvReac Type Severity Reaction Status Date / Time sertraline [From ZOLOFT] Allergy Unknown Hives Verified 05/10/19 16:34 Review of Systems Review of Systems ROS Unobtainable: All systems reviewed & are unremarkable except as noted in HPI and below Constitutional Constitutional: Denies chills, Denies fatigue, Denies fever(s), Denies frequent falls, Denies lethargy and Denies weakness Eyes Eyes: Denies change in vision, Denies eye discharge, Denies irritation and Denies loss of vision ENT Ears, Nose, Mouth, and Throat: Denies change in voice, Denies dizziness, Denies neck pain, Denies sore throat and Denies throat swelling Cardiovascular Cardiovascular: Denies chest pain, Denies irregular heart rhythm, Reports lightheadedness, Denies palpitations, Denies dyspnea, Denies dyspnea on exertion and Denies orthopnea Respiratory Respiratory: Denies cough, Denies dyspnea, Denies dyspnea on exertion and Denies wheezing Gastrointestinal Gastrointestinal: Denies abdominal pain, Denies change in bowel habits, Denies diarrhea, Denies nausea and Denies vomiting Genitourinary Genitourinary: Denies hematuria, Denies flank pain, Denies urinary incontinence and Denies urinary urgency Musculoskeletal Musculoskeletal: Denies back pain, Denies muscle weakness, Denies neck pain, Denies numbness and Denies tingling Integumentary/Breasts Skin/Breast: Denies pruritus, Denies erythema, Denies rash and Denies wounds Neurologic Neurologic: Denies behavioral changes, Denies confusion, Denies dizziness, Denies frequent falls, Denies loss of vision, Denies numbness, Denies tingling and Denies weakness Psychiatric Psychiatric: Denies anxiety, Denies behavioral changes, Denies confusion, Denies depression, Denies homicidal ideation and Denies suicidal ideation Endocrine Endocrine: Denies fatigue, Denies flushing and Denies palpitations Hematologic/Lymphatic Hematologic/Lymphatic: Denies easy bruising Allergic/Immunologic Allergic/Immunologic: Denies urticaria, Denies throat swelling and Denies whee zing [facility] Medical History Bronchospastic airway disease (Chronic) Dysmenorrhea (Inactive) General counselling and advice on contraception (Resolved) Herpetic christine (Chronic) Menorrhagia (Inactive) Pyelonephritis (Chronic) Surgical History No pertinent past surgical history (Chronic) Family History Other Family history non-contributory Social History Smoking Status: Never smoker Social History Smoking Status: Never smoker Exam Initial Vital Signs Initial Vital Signs: Vital Signs Temperature 99.0 F 08/03/19 22:02 Pulse Rate 129 H 08/03/19 22:02 Respiratory Rate 18 08/03/19 22:02 Blood Pressure 143/87 H 08/03/19 22:02 Pulse Oximetry 98 08/03/19 22:02 Const General: cooperative and well developed Nutritional Appearance: well nourished Orientation: alert, awake, oriented x3 and not confused [facility] Head: normocephalic and atraumatic Ears: external ears normal Nose: external nose normal and No nasal discharge Face and sinus: face symmetric and No dry mucous membranes Mouth: oral mucosae normal and moist mucous membranes Teeth and gingiva: dentition normal Eyes General: appearance normal, both eyes and all related structures Eyelids: eyelids normal Conjunctivae: conjunctivae normal Sclera: sclerae normal Pupils: PERRL EOM: EOM intact bilaterally Neck Neck: normal visual inspection, trachea midline, No lymphadenopathy, No midline deformity and No JVD Lymphatic: No lymphedema Chest Chest: normal inspection of the chest Resp Effort & Inspection: normal respiratory effort, able to speak in complete sentences, no respiratory distress and no use of accessory muscles Auscultation: clear to auscultation bilaterally, no rales, no rhonchi and no wheezes Cardio Rate: regular rate Rhythm: regular rhythm Heart Sounds: no click, no gallops, no murmurs and no rubs Pulses: normal peripheral pulses GI Inspection: non-distended Palpation: soft, no hepatosplenomegaly, No guarding, No pulsatile mass and No tender Back/Spine/Pelvis Back: No CVA tenderness Cervical Spine: cervical ROM normal and No pain with cervical ROM Thoracic/Lumbar Spine: thoracic and lumbar spine normal to inspection Skin General: no rashes or lesions noted, No jaundice and No petechiae Neuro General: alert, oriented x3, gait normal and no focal motor deficits Speech: speech normal Extrem General: full ROM, no clubbing, cyanosis or edema, no pedal edema and no calf tenderness Psych Appearance: well kempt Mental Status: mental status grossly normal Attitude: cooperative Thought Content: normal and suicidality Judgment: judgment good Course Course Course Narrative: Patient was treated with IV fluids, and worked up with laboratory studies, which were unremarkable. I performed heart tones myself at bedside, and found them to be in the 140s to 150s. Patient was found to be feeling much better after IV fluids. We have discussed home management of symptoms, as well as the usual indications for return. No evidence of an emergent condition causing the patient's syncopal episode been identified at this time. Orders Ordered: Discontinued Medications Sodium Chloride (Normal Saline 0.9%) 1,000 mls @ 1,000 mls/hr IV BOLUS ONE Stop: 08/03/19 23:26 Last Infusion: 08/03/19 23:46 Dose: 0 mls/hr Documented by: Admin: 08/03/19 22:31 Dose: 1,000 mls/hr Documented by: ANN Ondansetron HCl (Zofran) 4 mg IV NOW ONE Stop: 08/03/19 22:28 Last Admin: 08/03/19 22:31 Dose: 4 mg Documented by: ANN Vital Signs Vital signs: Vital Signs - 8 hr 08/03/19 22:02 08/03/19 22:30 08/03/19 23:00 Temperature 99.0 F Pulse Rate 129 H 99 H 96 H Respiratory Rate 18 21 17 Blood Pressure 143/87 H Blood Pressure [Left Arm] 113/70 128/76 Pulse Oximetry 98 100 97 MDM - Syncope Medical Records Attestation: I reviewed the patient's medical records. Lab Data Attestation: I reviewed the patient's lab results. Result diagrams: 08/03/19 22:20 08/03/19 22:20 Labs: Lab Results 08/03/19 08/03/19 08/03/19 Range/Units 22:20 22:20 23:13 WBC 10.7 (4.5-11.0) X10^3/uL RBC 4.07 (4.0-5.2) X10^6/uL Hgb 12.1 (12.0-16.0) g/dL Hct 34.6 L (36-46) % MCV 85.1 (80-100) fL MCH 29.8 (26-34) PG MCHC 35.0 (30-36) % RDW 13.6 (11.6-14.8) % Plt Count 319 (150-400) X10^3/uL Neut % (Auto) 72.8 (50-75) % Lymph % (Auto) 20.7 L (25-40) % [place] % (Auto) 5.6 (3-14) % Eos % (Auto) 0.6 L (2-4) % Baso % (Auto) 0.3 (0-2) % Neut # (Auto) 7800 H (7980-5175) /uL Lymph # (Auto) 2200 (4157-6156) /uL [place] # (Auto) 600 (0-900) /uL Eos # (Auto) 100 (0-450) /uL Baso # (Auto) 0 (0-100) /uL Sodium 136 L (137-145) mmol/L Potassium 3.8 (3.4-5.1) mmol/L Chloride 103 (98-107) mmol/L Carbon Dioxide 22 (22-32) mmol/L BUN 10 (7-17) mg/dL Creatinine 0.40 L (0.52-1.04) mg/dL Estimated GFR > 60.0 (>60) mL/min BUN/Creatinine Ratio 25.0 H (6-22) Glucose 98 (70-100) mg/dL Calcium 9.3 (8.4-10.2) mg/dL Urine Color Yellow Urine Appearance Cloudy Urine pH 5.0 (4.5-8.0) Ur Specific [place] >=1.030 H (1.000-1.035) Urine Protein 2+ H (Negative) Urine Glucose (UA) Negative (Negative) g/dL Urine Ketones 1+ H (NEGATIVE) Urine Occult Blood Negative (Negative) Urine Nitrate Negative (Negative) Urine Bilirubin 1+ H (NEGATIVE) Urine Ictotest Negative (Negative) Urine Urobilinogen 0.2 (0.2) E.U./dL Ur Leukocyte Esterase Trace H (NEGATIVE) Urine RBC None seen (0-5/HPF) Urine WBC 0-1/hpf (0-5/HPF) Ur Squamous Epith Cells 5-10 /hpf H (0-5/HPF) Amorphous Sediment 3+ Urine Bacteria Few (2-10) H (None) Urine Mucus 4+ H D (Negative) Ur Culture Indicated? Cult not indicated Urine Opiates Screen (Negative) Ur Oxycodone Screen (Negative) Urine Methadone Screen (Negative) Ur Barbiturates Screen (Negative) U Tricyclic Antidepress (Negative) Ur Phencyclidine Scrn (Negative) Ur Amphetamines Screen (Negative) U Methamphetamines Scrn (Negative) Ur MDMA Scrn (Ecstasy) (Negative) U Benzodiazepines Scrn (Negative) Urine Cocaine Screen (Negative) U Marijuana (THC) Screen (Negative) 08/03/19 Range/Units 23:13 WBC (4.5-11.0) X10^3/uL RBC (4.0-5.2) X10^6/uL Hgb (12.0-16.0) g/dL Hct (36-46) % MCV (80-100) fL MCH (26-34) PG MCHC (30-36) % RDW (11.6-14.8) % Plt Count (150-400) X10^3/uL Neut % (Auto) (50-75) % Lymph % (Auto) (25-40) % [place] % (Auto) (3-14) % Eos % (Auto) (2-4) % Baso % (Auto) (0-2) % Neut # (Auto) (9935-3247) /uL Lymph # (Auto) (0207-6237) /uL [place] # (Auto) (0-900) /uL Eos # (Auto) (0-450) /uL Baso # (Auto) (0-100) /uL Sodium (137-145) mmol/L Potassium (3.4-5.1) mmol/L Chloride (98-107) mmol/L Carbon Dioxide (22-32) mmol/L BUN (7-17) mg/dL Creatinine (0.52-1.04) mg/dL Estimated GFR (>60) mL/min BUN/Creatinine Ratio (6-22) Glucose (70-100) mg/dL Calcium (8.4-10.2) mg/dL Urine Color Urine Appearance Urine pH (4.5-8.0) Ur Specific [place] (1.000-1.035) Urine Protein (Negative) Urine Glucose (UA) (Negative) g/dL Urine Ketones (NEGATIVE) Urine Occult Blood (Negative) Urine Nitrate (Negative) Urine Bilirubin (NEGATIVE) Urine Ictotest (Negative) Urine Urobilinogen (0.2) E.U./dL Ur Leukocyte Esterase (NEGATIVE) Urine RBC (0-5/HPF) Urine WBC (0-5/HPF) Ur Squamous Epith Cells (0-5/HPF) Amorphous Sediment Urine Bacteria (None) Urine Mucus (Negative) Ur Culture Indicated? Urine Opiates Screen Negative (Negative) Ur Oxycodone Screen Negative (Negative) Urine Methadone Screen Negative (Negative) Ur Barbiturates Screen Negative (Negative) U Tricyclic Antidepress Negative (Negative) Ur Phencyclidine Scrn Negative (Negative) Ur Amphetamines Screen Negative (Negative) U Methamphetamines Scrn Positive H (Negative) Ur MDMA Scrn (Ecstasy) Negative (Negative) U Benzodiazepines Scrn Negative (Negative) Urine Cocaine Screen Negative (Negative) U Marijuana (THC) Screen Positive H (Negative) Point of Care Testing Glucose POC 82 Discharge Plan Departure Patient Disposition: Home Clinical Impression: Acute dehydration, Orthostatic syncope Discharge Date/Time: 08/04/19 00:30 Instructions: DI for Syncope in Adults (Fainting), DI for Dehydration -- Adult Activity Restrictions/Additional Instructions: Your labs look great. Your heart rate has improved considerably since receiving IV fluids. It is very very important that you drink plenty of fluids, especially water, every day. You should be drinking 10-12 cups of water on a daily basis at this stage in your . Your baby's heart rate is normal, and there is no evidence of a problem with your at this time. Please follow up with your OB specialist for any further concerns. Your prescription for Zofran has been electronically transmitted to [facility] pharmacy in [place]. Prescriptions: New ondansetron 4 mg tablet,disintegrating 4 mg PO Q6H PRN (Reason: nausea and vomiting) Qty: 10 RF: 0 No Action albuterol sulfate [Ventolin HFA] 90 MCG/PUFF HFA aerosol inhaler 2 puff INH Q4HP PRN (Reason: Shortness Of Breath) Qty: 0 RF: 0 ipratropium bromide [Atrovent HFA] 12.9 GM HFA aerosol inhaler 1 puff INH BID Qty: 0 RF: 0 clindamycin phosphate 2 % cream 1 applicator VAG BEDTIME Qty: 70 RF: 0 metoclopramide HCl [Reglan] 10 mg tablet 10 mg PO Q6H PRN (Reason: nausea and vomiting) Qty: 20 RF: 2 prenat.vits,sisi,rrt-wlem-odnmi tablet 1 tab PO DAILY Qty: 30 RF: 0 nitrofurantoin monohyd/m-cryst [Macrobid] 100 mg capsule 100 mg PO Q12H Qty: 14 RF: 0 docusate sodium [Colace] 100 mg capsule 100 mg PO BID PRN (Reason: constipation) Qty: 14 RF: 0 Referrals: Tico Cleveland MD [Physician] -
[2019-08-04 00:42] VITALS: BP 124/67; PULSE 104; RESP 20; TEMP 36.9; O2SAT 96
== END 2019-08-04 00:30 | disposition home or self-care (01) ==
PROVIDERS: Emergency Provider Emergency Medicine
DX: E86.0 Dehydration (principal); I95.1 Orthostatic hypotension
CPT/HCPCS: 36591; 80048; 80305; 81001; 85025; 93005; 96361; 96374; 99283; 99284; J2405

== ENCOUNTER 2019-09-17 00:59 | Outpatient (CLI) | payer OTHER, MEDICAID, SELFPAY ==
[2019-09-17 01:30] LABS: RBC Urine None Seen (0-5/HPF)
[2019-09-17 01:31] LABS: Appearance Urine UA CLEAR; Bilirubin Urine UA NEGATIVE (NEGATIVE); Color Urine UA YELLOW; Glucose Urine UA NEGATIVE (Negative); Ketones Urine UA NEGATIVE (NEGATIVE); Leukocyte Esterase Urine UA TRACE (NEGATIVE); Nitrite Urine UA NEGATIVE (Negative); Occult Blood Urine UA NEGATIVE (Negative); Protein Urine UA NEGATIVE (Negative); Urobilinogen Urine UA 0.2 E.U./dL (0.2); pH Urine UA 7.5 (4.5-8.0)
[2019-09-17 01:39] LABS: Bacteria Urine Few (2-10); Culture Indicated Urine Specimen Cultured; Squamous Epithelial Cell Urine 0-1 /HPF (0-5/HPF); WBC Urine 0-1/HPF (0-5/HPF)
--- NOTE | 2019-09-17 01:55 | P.TNLD_ITS ---
Visit Information Visit Information Date of evaluation: 09/17/19 Primary OB Provider: Tico Cleveland On-call OB Provider: Brtit Buchanan Reason for Evaluation: Yes non-stress test non-stress test reason: decreased movement Comments/Additional reasons for admission: This patient is a 18yo @29+3 with a history of frequent UTIs, presenting with decreased movement resolved just after admission and with dysuria and urinary frequency. The patient denies any other obstetrical complaints, and denies any symptoms of systemic infection. [facility] Social History Smoking Status: Never smoker Review of Systems Review of Systems ROS Unobtainable: All systems reviewed & are unremarkable except as noted in HPI and below Genitourinary Genitourinary: Reports as per HPI Exam Vital Signs (past 8 hours): 130/70, HR 126, T 35.7C Objective Labs Labs: Laboratory Results - last 24 hr 09/17/19 01:25 Urine Color Yellow Urine Appearance Clear Urine pH 7.5 Ur Specific [place] 1.010 Urine Protein Negative Urine Glucose (UA) Negative Urine Ketones Negative Urine Occult Blood Negative Urine Nitrate Negative Urine Bilirubin Negative Urine Urobilinogen 0.2 Ur Leukocyte Esterase Trace H Urine RBC None seen Urine WBC 0-1/hpf Ur Squamous Epith Cells 0-1 /hpf Urine Bacteria Few (2-10) H Ur Culture Indicated? Specimen cultured Evaluation Evaluation Baseline heart rate: 140 Variability: Average (6-10) monitor accelerations: Present monitor decelerations: Absent Category of Tracing: I Laboratory results: Laboratory Tests 09/17/19 01:25 Urine Color Yellow Urine Appearance Clear Urine pH 7.5 Ur Specific [place] 1.010 Urine Protein Negative Urine Glucose (UA) Negative Urine Ketones Negative Urine Occult Blood Negative Urine Nitrate Negative Urine Bilirubin Negative Urine Urobilinogen 0.2 Ur Leukocyte Esterase Trace H Urine RBC None seen Urine WBC 0-1/hpf Ur Squamous Epith Cells 0-1 /hpf Urine Bacteria Few (2-10) H Ur Culture Indicated? Specimen cultured Diagnosis, Plan/Disposition Plan/Disposition Plan: This patient presents for decreased movement resolved since admission, and reports UTI symptoms. She will be prescribed macrobid and a urine culture will be sent, is for discussion of antepartum precautions, and will be discharged home. OB Disposition: home
== END 2019-09-17 01:50 | disposition home or self-care (01) ==
LOC: LABOR 01:56 → OB 09:02
DX: O36.8130 Decreased fetal movements, third trimester, not applicable or unspecified (principal); Z3A.29 29 weeks gestation of pregnancy; O26.893 Other specified pregnancy related conditions, third trimester; R30.0 Dysuria
CPT/HCPCS: 59025; 81001; 87077; 87086; G0378; G0379

== ENCOUNTER → 2019-09-18 11:32 | Outpatient (CLI) | payer OTHER, MEDICAID, SELFPAY ==
[2019-09-18 13:08] LABS: Hematocrit 31.7 % (36-46); Hemoglobin 10.9 g/dL (12.0-16.0)
[2019-09-18 14:08] LABS: GTT (PREG) 1 Hour PP 50gm Dose 143 mg/dL (76-139)
== END ==
DX: Z34.02 Encounter for supervision of normal first pregnancy, second trimester (principal)
CPT/HCPCS: 36415; 82950; 85014; 85018

== ENCOUNTER 2019-09-27 14:40 | Emergency (ER) | payer OTHER, MEDICAID, SELFPAY ==
[2019-09-27 15:09] VITALS: BP 136/80; PULSE 99; RESP 18; TEMP 37.5; O2SAT 96; BMI 36.9
--- NOTE | 2019-09-27 16:22 | ED.WEAKNESS ---
HPI - Weakness General Chief complaint: Weakness Stated complaint: FAINTING SPELLS,IRON LEVELS LOW; 31 WKS PREG Time Seen by Provider: 09/27/19 16:09 Source: patient Mode of arrival: Family Vehicle Limitations: no limitations History of Present Illness HPI Narrative: Patient is a 18 year old female currently 31 weeks , presenting with generalized weakness. He says she has overall felt weak for the last day or so she feels a little nauseous no vomiting no abdominal pain no vaginal bleeding. She feels like she might pass out she was told that she needed to start taking iron last week so she started taking it a few days ago. MD Complaint: generalized weakness Related Data Home Medications Medication Instructions Recorded Confirmed albuterol sulfate [Ventolin HFA] 2 puff INH Q4HP PRN #0 02/27/17 03/02/19 ipratropium bromide [Atrovent HFA] 1 puff INH BID #0 02/27/17 03/02/19 Previous Rx's Medication Instructions Recorded prenat.vits,sisi,xcm-bwnp-ddeeh 1 tab PO DAILY #30 tab 03/25/19 clindamycin phosphate 2 % vaginal 1 applicator VAG BEDTIME #70 gram 04/17/19 cream nitrofurantoin monohyd/m-cryst 100 mg PO Q12H #14 cap 05/10/19 [Macrobid] metoclopramide HCl 10 mg tablet 10 mg PO Q6H PRN #20 tab 05/11/19 docusate sodium [Colace] 100 mg PO BID PRN #14 cap 06/26/19 ondansetron 4 mg PO Q6H PRN #10 tab 08/04/19 nitrofurantoin macrocrystal 100 mg 100 mg PO Q12H #10 cap 09/17/19 capsule Allergies Allergy/AdvReac Type Severity Reaction Status Date / Time sertraline [From ZOLOFT] Allergy Unknown Hives Verified 09/27/19 15:13 Review of Systems Review of Systems ROS Unobtainable: All systems reviewed & are unremarkable except as noted in HPI and below Eyes Eyes: Denies change in vision, Denies eye discharge, Denies irritation and Denies loss of vision ENT Ears, Nose, Mouth, and Throat: Denies change in voice, Denies neck pain and Denies sore throat Cardiovascular Cardiovascular: Reports lightheadedness, Denies dyspnea and Denies dyspnea on exertion Respiratory Respiratory: Denies cough, Denies dyspnea, Denies dyspnea on exertion and Denies wheezing Genitourinary Genitourinary: Denies hematuria, Denies flank pain, Denies urinary incontinence and Denies urinary urgency Musculoskeletal Musculoskeletal: Denies neck pain Integumentary/Breasts Skin/Breast: Denies pruritus, Denies erythema, Denies rash and Denies wounds Neurologic Neurologic: Denies loss of vision Allergic/Immunologic Allergic/Immunologic: Denies wheezing Patient History Medical History Bronchospastic airway disease (Chronic) Dysmenorrhea (Inactive) General counselling and advice on contraception (Resolved) Herpetic christine (Chronic) Menorrhagia (Inactive) Pyelonephritis (Chronic) Surgical History No pertinent past surgical history (Chronic) Family History Other Family history non-contributory Social History Smoking Status: Never smoker alcohol intake frequency: 0-2 drinks per day Substance Use Type: does not use Exam Initial Vital Signs Initial Vital Signs: Vital Signs Temperature 99.5 F 09/27/19 15:09 Pulse Rate 99 H 09/27/19 15:09 Respiratory Rate 18 09/27/19 15:09 Blood Pressure 136/80 09/27/19 15:09 Pulse Oximetry 96 09/27/19 15:09 GENERAL: Well-appearing, well-nourished and in no acute distress. HEENT: Head atraumatic,EOMI, pupils reactive, face symmetric, moist mucous membranes CARDIOVASCULAR: Regular rate and rhythm without murmurs, rubs or gallops. RESPIRATORY: Breath sounds equal bilaterally, no wheezes rales or rhonchi. ABDOMEN: Soft, gravid nontender nontender. Normoactive bowel sounds all 4 quadrants. No guarding or rebound. EXTREMITIES: Normal range of motion, no clubbing or edema. Neurovascularly intact NEUROLOGICAL: Alert and oriented x4.Normal gait and speech. SKIN: Warm, dry, no laceration, no petechiae, no rashes or lesions. Course Orders Ordered: ED Orders 09/27/19 16:01 EKG-12 Lead Stat 09/27/19 16:05 CMP [Comprehensive Metabolic Panel] Stat Complete Blood Count AUTO DIFF Stat 09/27/19 16:21 Urine Culture Stat Urine Microscopic Stat Discontinued Medications Sodium Chloride (Normal Saline 0.9%) 1,000 mls @ 1,000 mls/hr IV BOLUS ONE Stop: 09/27/19 17:17 Last Infusion: 09/27/19 17:45 Dose: 0 mls/hr Documented by: Admin: 09/27/19 16:45 Dose: 1,000 mls/hr Documented by: OPAL Vital Signs Vital signs: Vital Signs - 8 hr 09/27/19 15:09 09/27/19 17:00 09/27/19 17:30 Temperature 99.5 F Pulse Rate 99 H 86 87 Respiratory Rate 18 16 16 Blood Pressure 136/80 Blood Pressure [Left Arm] 128/71 123/75 Pulse Oximetry 96 99 98 MDM - Weakness Lab Data Attestation: I reviewed the patient's lab results. Result diagrams: 09/27/19 16:05 09/27/19 16:05 Labs: Lab Results 09/27/19 09/27/19 09/27/19 Range/Units 16:05 16:05 16:21 WBC 9.9 (4.5-11.0) X10^3/uL RBC 3.79 L (4.0-5.2) X10^6/uL Hgb 10.8 L (12.0-16.0) g/dL Hct 32.2 L (36-46) % MCV 84.9 (80-100) fL MCH 28.6 (26-34) PG MCHC 33.6 (30-36) % RDW 14.1 (11.6-14.8) % Plt Count 277 (150-400) X10^3/uL Neut % (Auto) 74.3 (50-75) % Lymph % (Auto) 18.1 L (25-40) % [place] % (Auto) 6.4 (3-14) % Eos % (Auto) 0.7 L (2-4) % Baso % (Auto) 0.5 (0-2) % Neut # (Auto) 7400 H (5420-4747) /uL Lymph # (Auto) 1800 (7506-0414) /uL [place] # (Auto) 600 (0-900) /uL Eos # (Auto) 100 (0-450) /uL Baso # (Auto) 0 (0-100) /uL Sodium 136 L (137-145) mmol/L Potassium 4.3 (3.4-5.1) mmol/L Chloride 105 (98-107) mmol/L Carbon Dioxide 23 (22-32) mmol/L BUN 7 (7-17) mg/dL Creatinine 0.40 L (0.52-1.04) mg/dL Estimated GFR > 60.0 (>60) mL/min BUN/Creatinine Ratio 17.5 (6-22) Glucose 98 (70-100) mg/dL Calcium 9.2 (8.4-10.2) mg/dL Total Bilirubin 0.4 (0.2-1.3) mg/dL AST 26 (14-36) IU/L ALT 11 (<35) IU/L Alkaline Phosphatase 84 (38-126) U/L Total Protein 6.6 (6.3-8.2) g/dL Albumin 3.6 (3.5-5.0) g/dL Globulin 3.0 (1.7-4.1) g/dL Albumin/Globulin Ratio 1.2 (1.0-2.8) Urine RBC None seen (0-5/HPF) Urine WBC 5-10/hpf H (0-5/HPF) Ur Squamous Epith Cells 1-5 /hpf (0-5/HPF) Amorphous Sediment 1+ Urine Bacteria Occasional (0-1) (None) Granular Casts 1-5/lpf (None) Urine Mucus 1+ H D (Negative) Ur Culture Indicated? Specimen cultured Urine Dip Bedside Urine Glucose Negative Bedside Urine Bilirubin - Negative Bedside Urine Ketone - Negative Urine Specific [place] 1.015 Bedside Urine Occult Blood - Negative Bedside Urine pH 7.0 Bedside Urine Protein +/- 15 Bedside Urine Urobilinogen - Negative Bedside Urine Nitrite - Negative Bedside Urine Leukocytes + 70 Esterase ECG Data Attestation: I personally reviewed and interpreted this ECG as follows: Prior ECG tracings: available for review Interpretation: Normal sinus rhythm rate 112 p[address] interval [address] changes no T-wave inversions similar to previous EKGs [facility] Narrative Medical decision making narrative: She has been battling a UTI for about 3 weeks she was on Macrobid for 1 week. Her previous culture showed lactobacillus only. At this time will hold off antibiotics, await for culture results. No leukocytosis. Or fever. The patient apparently was brought to Labor and delivery for heart tones. It was 138 according to the center. Discharge Plan Departure Patient Disposition: Home Clinical Impression: Weakness Discharge Date/Time: 09/27/19 18:26 Instructions: DI for -- Discomforts and Remedies Activity Restrictions/Additional Instructions: *You have been diagnosed with weakness *What to do: Unsure what is causing her symptoms. At this time will hold off giving antibiotics for questionable bladder infection your just on antibiotics. Will wait for urine culture results. This will take 2-3 days. If you should need an antibiotic we will call you *Continue to take medications as directed *Follow up with your primary care provider in 2-3 days *Return to ER if you should have increasing witnessed passing out chest pain heart palpitations or any new, worsening or concerning symptoms Prescriptions: No Action albuterol sulfate [Ventolin HFA] 90 MCG/PUFF HFA aerosol inhaler 2 puff INH Q4HP PRN (Reason: Shortness Of Breath) Qty: 0 RF: 0 ipratropium bromide [Atrovent HFA] 12.9 GM HFA aerosol inhaler 1 puff INH BID Qty: 0 RF: 0 clindamycin phosphate 2 % cream 1 applicator VAG BEDTIME Qty: 70 RF: 0 metoclopramide HCl [Reglan] 10 mg tablet 10 mg PO Q6H PRN (Reason: nausea and vomiting) Qty: 20 RF: 2 nitrofurantoin macrocrystal 100 mg capsule 100 mg PO Q12H Qty: 10 RF: 0 prenat.vits,sisi,axj-byqo-umrbp tablet 1 tab PO DAILY Qty: 30 RF: 0 ondansetron 4 mg tablet,disintegrating 4 mg PO Q6H PRN (Reason: nausea and vomiting) Qty: 10 RF: 0 nitrofurantoin monohyd/m-cryst [Macrobid] 100 mg capsule 100 mg PO Q12H Qty: 14 RF: 0 docusate sodium [Colace] 100 mg capsule 100 mg PO BID PRN (Reason: constipation) Qty: 14 RF: 0 Referrals: Tico Cleveland MD [Family Provider] -
[2019-09-27 16:24] LABS: RBC Urine None Seen (0-5/HPF)
[2019-09-27 16:31] LABS: Amorphous Sediment Urine 1+; Bacteria Urine Occasional (0-1); Culture Indicated Urine Specimen Cultured; Granular Casts Urine 1-5/LPF; Mucus Urine 1+ (Negative); Squamous Epithelial Cell Urine 1-5 /HPF (0-5/HPF); WBC Urine 5-10/HPF (0-5/HPF)
[2019-09-27] MEDS: SODIUM CHLORIDE 0.9% 1,000 ML 1000 ML IV (16:45)
[2019-09-27 17:00] VITALS: BP 128/71; PULSE 86; RESP 16; O2SAT 99
[2019-09-27 17:24] LABS: Add Manual Diff / Slide Review NO; Basophils Absolute Auto 0 /uL (0-100); Basophils Percent Auto 0.5 % (0-2); Eosinophils Absolute Auto 100 /uL (0-450); Eosinophils Percent Auto 0.7 % (2-4); Hematocrit 32.2 % (36-46); Hemoglobin 10.8 g/dL (12.0-16.0); Lymphocytes Absolute Auto 1800 /uL (1100-4500); Lymphocytes Percent Auto 18.1 % (25-40); Mean Corpuscular HGB Conc 33.6 % (30-36); Mean Corpuscular Hemoglobin 28.6 PG (26-34); Mean Corpuscular Volume 84.9 fL (80-100); Monocytes Absolute Auto 600 /uL (0-900); Monocytes Percent Auto 6.4 % (3-14); Neutrophils Absolute Auto 7400 /uL (1500-7000); Neutrophils Percent Auto 74.3 % (50-75); Platelet Count 277 X10^3/uL (150-400); Red Blood Cell Count 3.79 X10^6/uL (4.0-5.2); Red Cell Distribution Width 14.1 % (11.6-14.8); White Blood Cell Count 9.9 X10^3/uL (4.5-11.0)
[2019-09-27 17:30] VITALS: BP 123/75; PULSE 87; RESP 16; O2SAT 98
[2019-09-27 17:34] LABS: Alanine Aminotransferase 11 IU/L (<35); Albumin 3.6 g/dL (3.5-5.0); Albumin Globulin Ratio 1.2 (1.0-2.8); Alkaline Phosphatase 84 U/L (38-126); Aspartate Aminotransferase 26 IU/L (14-36); BUN Creatinine Ratio 17.5 (6-22); Bilirubin Total 0.4 mg/dL (0.2-1.3); Blood Urea Nitrogen 7 mg/dL (7-17); Calcium 9.2 mg/dL (8.4-10.2); Carbon Dioxide 23 mmol/L (22-32); Chloride 105 mmol/L (98-107); Estimated Glomerular Filt Rate > 60.0 mL/min (>60); Glucose 98 mg/dL (70-100); HEMOLYSIS 45 (0-50); Potassium 4.3 mmol/L (3.4-5.1); Sodium 136 mmol/L (137-145); Total Protein 6.6 g/dL (6.3-8.2)
== END 2019-09-27 18:26 | disposition home or self-care (01) ==
PROVIDERS: Emergency Provider Emergency Medicine
DX: O26.893 Other specified pregnancy related conditions, third trimester (principal); R53.1 Weakness
CPT/HCPCS: 36415; 80053; 81003; 81015; 85025; 87086; 93005; 96360; 99283; 99284

== ENCOUNTER → 2019-09-29 09:52 | Outpatient (CLI) | payer OTHER, MEDICAID, SELFPAY ==
[2019-09-29 11:07] LABS: Glucose Fasting Gestational 86 mg/dL (76-95)
[2019-09-29 12:22] LABS: Glucose 1 Hour Gest 156 mg/dL (76-180)
[2019-09-29 13:17] LABS: Glucose Tol Interp,Gestational INTERPRETATION
[2019-09-29 13:35] LABS: Glucose 2 Hour Gest 149 mg/dL (76-155)
[2019-09-29 14:20] LABS: Glucose 3 Hour Gest 137 mg/dL (76-140)
== END ==
DX: O99.810 Abnormal glucose complicating pregnancy (principal); Z3A.29 29 weeks gestation of pregnancy
CPT/HCPCS: 36415; 82951; 82952

== ENCOUNTER 2019-10-12 18:00 | Observation (INO) | payer OTHER, MEDICAID, SELFPAY ==
[2019-10-12] MEDS: LACTATED RINGERS 1,000 ML 1000 ML IV (18:40)
--- NOTE | 2019-10-12 18:45 | PM.OBTRLD ---
Visit Information Visit Information Date of evaluation: 10/12/19 Primary OB Provider: Tico Cleveland On-call OB Provider: Leta Armijo Reason for Evaluation: Yes other Comments/Additional reasons for admission: Patient thought she was dehydrated Vital Signs Vital Signs: Blood pressure 135/84, pulse of 112, temperature 96.2? [facility] Social History Smoking Status: Never smoker Review of Systems Review of Systems Narrative: Patient states she feels kind of out of it. She has a history of dehydration and feels she is dehydrated. She has a lot a nausea. She states she has not felt well for the week and a half since she had her 3 hour glucose tolerance test. She has a minimal headache. No scotomata. Good movement. No leakage of fluid. No contractions. ROS Unobtainable: All systems reviewed & are unremarkable except as noted in HPI and below Exam Narrative Exam Narrative: Abdomen is soft, nontender. Reflexes are normal. No edema. Evaluation Evaluation Baseline heart rate: 136 Variability: Average (6-10) monitor accelerations: Present monitor decelerations: Absent Contraction Frequency (minutes): 0 Category of Tracing: I Diagnosis, Plan/Disposition Final Diagnosis (1) Primiparous in third trimester: Current Visit: No Status: Acute (2) Dehydration during : Current Visit: Yes Status: Acute Plan/Disposition Plan: Patient who feels as if she is dehydrated. Will give a liter of lactated Ringer's and monitor her symptoms. Home if symptoms improve OB Disposition: home
== END 2019-10-12 21:00 | disposition home or self-care (01) ==
LOC: LABOR 18:01
PROVIDERS: Admitting Provider Specialist; Visit Provider Specialist
DX: O26.893 Other specified pregnancy related conditions, third trimester (principal); E86.0 Dehydration; Z3A.32 32 weeks gestation of pregnancy
CPT/HCPCS: 59025; 96360; G0378; G0379

== ENCOUNTER → 2019-10-13 15:00 | Oncology outpatient (ONC) | payer OTHER, MEDICAID, SELFPAY ==
[2019-05-14] MEDS: LACTATED RINGERS 1,000 ML 1000 ML IV (10:08)
[2019-08-06] MEDS: LACTATED RINGERS 1,000 ML 1000 ML IV (14:24)
[2019-08-06 14:25] VITALS: BP 126/71; PULSE 92; RESP 18; TEMP 36.9; O2SAT 98
[2019-10-13 15:17] VITALS: BP 136/71; PULSE 101; RESP 20; TEMP 36.4; O2SAT 98
[2019-10-13] MEDS: LACTATED RINGERS 500 ML IV (15:36)
== END ==
PROVIDERS: PCP Obstetrics & Gynecology; Visit Provider Obstetrics & Gynecology
DX: O21.0 Mild hyperemesis gravidarum (principal)
CPT/HCPCS: 96360; 96365

== ENCOUNTER 2019-10-25 15:53 | Outpatient (CLI) | payer OTHER, MEDICAID, SELFPAY ==
[2019-10-25 16:30] LABS: Appearance Urine UA CLOUDY; Bilirubin Urine UA 1+ (NEGATIVE); Color Urine UA YELLOW; Glucose Urine UA NEGATIVE (Negative); Ketones Urine UA TRACE (NEGATIVE); Leukocyte Esterase Urine UA 2+ (NEGATIVE); Nitrite Urine UA NEGATIVE (Negative); Occult Blood Urine UA NEGATIVE (Negative); Protein Urine UA 2+ (Negative); Specific Gravity Urine UA 1.025 (1.000-1.035); Urobilinogen Urine UA 0.2 E.U./dL (0.2)
[2019-10-25 16:46] LABS: Ictotest Urine Negative (Negative); RBC Urine 0-1/HPF (0-5/HPF); WBC Urine 10-30/HPF (0-5/HPF)
[2019-10-25 16:47] LABS: Amorphous Sediment Urine 1+; Bacteria Urine Many (>30); Squamous Epithelial Cell Urine 10-30 /HPF (0-5/HPF)
[2019-10-25 16:48] LABS: Culture Indicated Urine Cult Not Indicated
--- NOTE | 2019-10-25 17:17 | P.TNLD_ITS ---
Visit Information Visit Information Date of evaluation: 10/25/19 Primary OB Provider: Tico Cleveland On-call OB Provider: Britt Buchanan Reason for Evaluation: Yes non-stress test Comments/Additional reasons for admission: This patient is a 19yo @34+4 presenting with 2 days of decreased movement and cramping back pain in the setting of a history of frequent UTIs and kidney stones. The patient reports that she has had back pain for weeks that worsens significantly with movement, but that for the past few days, she has had worsening sharp back pains, sometimes when lying down. She denies suprapubic pain, dysuria, fevers, chills, nausea, vomiting, myalgias, vaginal bleeding, suprapubic cramping, or increased vaginal discharge. She reports that she had felt no movement since yesterday, but since arrival has felt copious movement and seen movement on the surface of her belly. She reports a history of both kidney stones and frequent UTIs, though she reports that she isn't sure that this feels like that. She has had an otherwise uncomplicated , and has not been on prophylactic macrobid. Vital Signs Vital Signs: 119/72, HR 91, T 35.9C PFSH Medical History Bronchospastic airway disease (Chronic) Dysmenorrhea (Inactive) General counselling and advice on contraception (Resolved) Herpetic christine (Chronic) Menorrhagia (Inactive) Pyelonephritis (Chronic) Surgical History No pertinent past surgical history (Chronic) Family History Other Family history non-contributory Social History Smoking Status: Never smoker Review of Systems Constitutional Constitutional: Reports system reviewed and no additional complaints, except as documented Cardiovascular Cardiovascular: Reports system reviewed; no additional complaints, except as documented Respiratory Respiratory: Reports system reviewed and no additional complaints, except as documented Gastrointestinal Gastrointestinal: Reports as per HPI Genitourinary Genitourinary: Reports as per HPI Exam Const General: cooperative, healthy appearing and comfortable GI Palpation: soft and No tender Other: obese, appropriately gravid. No fundal tenderness, mild suprapubic tenderness. General: No CVA tenderness Back/Spine/Pelvis Other: Tenderness to palpation of paraspinous muscles throughout lower back. Objective Labs Labs: Laboratory Results - last 24 hr 10/25/19 16:17 Urine Color Yellow Urine Appearance Cloudy Urine pH 6.0 Ur Specific [place] 1.025 Urine Protein 2+ H Urine Glucose (UA) Negative Urine Ketones Trace H Urine Occult Blood Negative Urine Nitrate Negative Urine Bilirubin 1+ H Urine Ictotest Negative Urine Urobilinogen 0.2 Ur Leukocyte Esterase 2+ H Urine RBC 0-1/hpf Urine WBC 10-30/hpf H Ur Squamous Epith Cells 10-30 /hpf H D Amorphous Sediment 1+ Urine Bacteria Many (>30) H Ur Culture Indicated? Cult not indicated Evaluation Evaluation Baseline heart rate: 135 Variability: Average (6-10) monitor accelerations: Present monitor decelerations: Absent Category of Tracing: I Laboratory results: Laboratory Tests 10/25/19 16:17 Urine Color Yellow Urine Appearance Cloudy Urine pH 6.0 Ur Specific [place] 1.025 Urine Protein 2+ H Urine Glucose (UA) Negative Urine Ketones Trace H Urine Occult Blood Negative Urine Nitrate Negative Urine Bilirubin 1+ H Urine Ictotest Negative Urine Urobilinogen 0.2 Ur Leukocyte Esterase 2+ H Urine RBC 0-1/hpf Urine WBC 10-30/hpf H Ur Squamous Epith Cells 10-30 /hpf H D Amorphous Sediment 1+ Urine Bacteria Many (>30) H Ur Culture Indicated? Cult not indicated Diagnosis, Plan/Disposition Plan/Disposition Plan: This patient has felt movement since arrival, and has reassuring status on monitoring with near constant audible movement on EFM. She has no contractions on the monitor, with low clinical suspicion for labor. She has a history of both UTIs and kidney stones, and has a UA and presentation consistent with both possible diagnoses. The patient reports that her pain is not severe enough to be admitted for IV pain control and urine straining, and we discussed the importance if PO hydration and activity at home. Her urine is to be cultured and she was prescribed a course of macrobid, and we discussed antepartum precautions and signs/sx of pyelonephritis. Her back pain appears to be primarily musculoskeletal, and she would benefit from a belly support band. We discussed this along with use of tylenol and hot packs, and she vocalized understanding. All questions were answered. OB Disposition: home
== END 2019-10-25 17:00 | disposition home or self-care (01) ==
LOC: LABOR 17:27 → OB 10-30 12:22
PROVIDERS: Visit Provider Obstetrics & Gynecology
DX: O26.893 Other specified pregnancy related conditions, third trimester (principal); M54.9 Dorsalgia, unspecified; Z3A.35 35 weeks gestation of pregnancy
CPT/HCPCS: 59025; 81001; 87077; 87086; G0378; G0379

== ENCOUNTER 2019-10-30 03:33 | Emergency (ER) | payer OTHER, MEDICAID, SELFPAY ==
[2019-10-30 03:40] VITALS: BP 144/77; PULSE 107; RESP 15; TEMP 36.8; O2SAT 97; BMI 37.5
--- NOTE | 2019-10-30 03:47 | ED.FEVER ---
HPI - Fever General Chief Complaint: Fever Stated Complaint: fever vomiting has uti 35 weeks Time Seen by Provider: 10/30/19 03:40 Source: patient Mode of arrival: Ambulatory Limitations: no limitations History of Present Illness HPI Narrative: 19-year-old female. Is 35 weeks here for evaluation dysuria, back pain, vomiting, and generally not feeling well. On Saturday she was seen by OB provider. Was diagnosed with a urinary tract infection. Placed on Macrobid she has finished a course of Macrobid. States that her symptoms have continued. She was having back pain at that time. States the back pain she is having today is the same back pain she is having then. It appears that this is not been a new issue recently. She denies any vaginal bleeding or vaginal discharge. Related Data Home Medications Medication Instructions Recorded Confirmed albuterol sulfate [Ventolin HFA] 2 puff INH Q4HP PRN #0 02/27/17 10/07/19 ipratropium bromide [Atrovent HFA] 1 puff INH BID #0 02/27/17 10/07/19 Previous Rx's Medication Instructions Recorded prenat.vits,sisi,svz-ilvy-fbged 1 tab PO DAILY #30 tab 03/25/19 clindamycin phosphate 2 % vaginal 1 applicator VAG BEDTIME #70 gram 04/17/19 cream nitrofurantoin monohyd/m-cryst 100 mg PO Q12H #14 cap 05/10/19 [Macrobid] metoclopramide HCl 10 mg tablet 10 mg PO Q6H PRN #20 tab 05/11/19 docusate sodium [Colace] 100 mg PO BID PRN #14 cap 06/26/19 ondansetron 4 mg PO Q6H PRN #10 tab 08/04/19 nitrofurantoin macrocrystal 100 mg 100 mg PO Q12H #10 cap 09/17/19 capsule Double Electric breast Pump and #1 each 10/02/19 Supplies mupirocin 2 % topical ointment 1 applic TOP BID #22 gram 10/07/19 nitrofurantoin monohyd/m-cryst 100 mg PO BID #10 cap 10/25/19 [Macrobid] cephalexin [Keflex] 500 mg PO BID 7 Days #14 cap 10/30/19 Allergies Allergy/AdvReac Type Severity Reaction Status Date / Time sertraline [From ZOLOFT] Allergy Unknown Hives Verified 10/07/19 18:17 Review of Systems Constitutional Constitutional: Reports fatigue Cardiovascular Cardiovascular: Denies chest pain and Denies dyspnea Respiratory Respiratory: Denies dyspnea Gastrointestinal Gastrointestinal: Reports vomiting Genitourinary Genitourinary: Reports urinary frequency, Reports dysuria and Denies vaginal discharge Musculoskeletal Musculoskeletal: Reports back pain Integumentary/Breasts Skin/Breast: Denies rash Neurologic Neurologic: Denies behavioral changes Psychiatric Psychiatric: Denies behavioral changes Endocrine Endocrine: Reports fatigue Hematologic/Lymphatic Hematologic/Lymphatic: Denies easy bleeding and Denies easy bruising Patient History Medical History Bronchospastic airway disease (Chronic) Dysmenorrhea (Inactive) General counselling and advice on contraception (Resolved) Herpetic christine (Chronic) Menorrhagia (Inactive) Pyelonephritis (Chronic) Social History Smoking Status: Never smoker Smoking Status: Never smoker alcohol intake frequency: 0-2 drinks per day Substance Use Type: does not use Exam Initial Vital Signs Initial Vital Signs: Vital Signs Temperature 98.2 F 10/30/19 03:40 Pulse Rate 107 H 10/30/19 03:40 Respiratory Rate 15 10/30/19 03:40 Blood Pressure 144/77 H 10/30/19 03:40 Pulse Oximetry 97 10/30/19 03:40 Const General: cooperative and comfortable Orientation: alert, awake and oriented x3 Other: Nontoxic HENMT Head: normal to inspection and normocephalic Resp Effort & Inspection: normal respiratory effort Auscultation: clear to auscultation bilaterally Cardio Rate: regular rate Rhythm: regular rhythm GI Palpation: soft Other: Gravid abdomen Back/Spine/Pelvis Back: No CVA tenderness Thoracic/Lumbar Spine: paraspinal tenderness (Thoracolumbar) Skin Lesions: no lesions Rashes: no rashes Neuro General: alert, awake and oriented x3 Cognition: normal cognition Speech: speech normal Extrem General: normal to inspection and capillary refill normal Psych Appearance: grossly normal and well kempt Course Orders Ordered: ED Orders 10/30/19 03:52 Comprehensive Metabolic Panel Stat Lipase Stat Procalcitonin Stat 10/30/19 04:00 Complete Blood Count AUTO DIFF Stat 10/30/19 04:55 Urine Culture Stat Urine Microscopic Stat Discontinued Medications Cephalexin HCl (Keflex) 500 mg PO NOW ONE Stop: 10/30/19 05:21 Last Admin: 10/30/19 05:37 Dose: 500 mg Documented by: EDWIN Sodium Chloride (Normal Saline 0.9%) 1,000 mls @ 1,000 mls/hr IV BOLUS ONE Stop: 10/30/19 04:50 Last Infusion: 10/30/19 04:53 Dose: 0 mls/hr Documented by: Admin: 10/30/19 03:58 Dose: 1,000 mls/hr Documented by: JO ANN Ondansetron HCl (Zofran) 4 mg IV NOW ONE Stop: 10/30/19 03:52 Last Admin: 10/30/19 03:58 Dose: 4 mg Documented by: JO ANN Vital Signs Vital signs: Vital Signs - 8 hr 10/30/19 03:40 10/30/19 05:20 Temperature 98.2 F Pulse Rate 107 H 96 H Respiratory Rate 15 16 Blood Pressure 144/77 H Blood Pressure [Right Arm] 139/81 Pulse Oximetry 97 94 MDM - Fever Lab Data Attestation: I reviewed the patient's lab results. Result diagrams: 10/30/19 04:00 10/30/19 03:52 Labs: Lab Results 10/30/19 10/30/19 10/30/19 Range/Units 03:52 03:52 04:00 WBC 8.5 (4.5-11.0) X10^3/uL RBC 4.17 (4.0-5.2) X10^6/uL Hgb 12.2 (12.0-16.0) g/dL Hct 35.6 L (36-46) % MCV 85.3 (80-100) fL MCH 29.3 (26-34) PG MCHC 34.4 (30-36) % RDW 15.8 H (11.6-14.8) % Plt Count 197 (150-400) X10^3/uL Neut % (Auto) 87.5 H (50-75) % Lymph % (Auto) 7.7 L (25-40) % [place] % (Auto) 4.2 (3-14) % Eos % (Auto) 0.4 L (2-4) % Baso % (Auto) 0.2 (0-2) % Neut # (Auto) 7500 H (1925-1404) /uL Lymph # (Auto) 700 L (7354-5728) /uL [place] # (Auto) 400 (0-900) /uL Eos # (Auto) 0 (0-450) /uL Baso # (Auto) 0 (0-100) /uL Sodium 135 L (137-145) mmol/L Potassium 3.8 (3.4-5.1) mmol/L Chloride 104 (98-107) mmol/L Carbon Dioxide 21 L (22-32) mmol/L BUN 7 (7-17) mg/dL Creatinine 0.40 L (0.52-1.04) mg/dL Estimated GFR > 60.0 (>60) mL/min BUN/Creatinine Ratio 17.5 (6-22) Glucose 100 (70-100) mg/dL Calcium 8.9 (8.4-10.2) mg/dL Total Bilirubin 0.6 (0.2-1.3) mg/dL AST 20 (14-36) IU/L ALT 10 (<35) IU/L Alkaline Phosphatase 113 (38-126) U/L Total Protein 6.6 (6.3-8.2) g/dL Albumin 3.5 (3.5-5.0) g/dL Globulin 3.1 (1.7-4.1) g/dL Albumin/Globulin Ratio 1.1 (1.0-2.8) Lipase 13 L (23-300) U/L Procalcitonin < 0.05 (<0.5) ng/mL Urine RBC (0-5/HPF) Urine WBC (0-5/HPF) Ur Squamous Epith Cells (0-5/HPF) Amorphous Sediment Urine Bacteria (None) Urine Mucus (Negative) Ur Culture Indicated? 10/30/19 Range/Units 04:55 WBC (4.5-11.0) X10^3/uL RBC (4.0-5.2) X10^6/uL Hgb (12.0-16.0) g/dL Hct (36-46) % MCV (80-100) fL MCH (26-34) PG MCHC (30-36) % RDW (11.6-14.8) % Plt Count (150-400) X10^3/uL Neut % (Auto) (50-75) % Lymph % (Auto) (25-40) % [place] % (Auto) (3-14) % Eos % (Auto) (2-4) % Baso % (Auto) (0-2) % Neut # (Auto) (0968-0710) /uL Lymph # (Auto) (6202-2966) /uL [place] # (Auto) (0-900) /uL Eos # (Auto) (0-450) /uL Baso # (Auto) (0-100) /uL Sodium (137-145) mmol/L Potassium (3.4-5.1) mmol/L Chloride (98-107) mmol/L Carbon Dioxide (22-32) mmol/L BUN (7-17) mg/dL Creatinine (0.52-1.04) mg/dL Estimated GFR (>60) mL/min BUN/Creatinine Ratio (6-22) Glucose (70-100) mg/dL Calcium (8.4-10.2) mg/dL Total Bilirubin (0.2-1.3) mg/dL AST (14-36) IU/L ALT (<35) IU/L Alkaline Phosphatase (38-126) U/L Total Protein (6.3-8.2) g/dL Albumin (3.5-5.0) g/dL Globulin (1.7-4.1) g/dL Albumin/Globulin Ratio (1.0-2.8) Lipase (23-300) U/L Procalcitonin (<0.5) ng/mL Urine RBC None seen (0-5/HPF) Urine WBC 5-10/hpf H (0-5/HPF) Ur Squamous Epith Cells 5-10 /hpf H (0-5/HPF) Amorphous Sediment 1+ Urine Bacteria Many (>30) H (None) Urine Mucus 2+ H (Negative) Ur Culture Indicated? Cult not indicated Urine Dip Bedside Urine Glucose 100 mg/dl Bedside Urine Bilirubin ++ 2 Bedside Urine Ketone ++ 40 Urine Specific [place] 1.02 Bedside Urine Occult Blood - Negative Bedside Urine pH 6.0 Bedside Urine Protein + 30 Bedside Urine Urobilinogen +/- 1mg Bedside Urine Nitrite + Positive Bedside Urine Leukocytes +++ 500 Esterase MDM Narrative Medical decision making narrative: The urine culture from several days ago grew lactobacillus which is most commonly a contamination. Her urinalysis today again shows findings that are concerning for urinary tract infection especially that she is now nitrite positive. She did not have nitrites earlier this week. Her heart rate improved with fluids. She is afebrile. Procalcitonin is negative. Does not have a leukocytosis. I do not believe that her back pain is consistent with pyelonephritis. She was given a dose of Keflex here in the ER was able to tolerated. Upon my re-evaluation she states that she continues to have back pain. Unfortunately we're limited normal we can give her given her status. She also stated that she was starting to have lower abdominal pain. Given her gestational age this is somewhat concerning for labor. Will discharge the patient to the Center for further evaluation. Discharge Plan Departure Patient Disposition: Home Clinical Impression: Urinary tract infection Qualifiers: Urinary tract infection type: acute cystitis Hematuria presence: with hematuria Qualified Code(s): N30.01 - Acute cystitis with hematuria Qualifiers: Weeks of gestation: 35 weeks Qualified Code(s): Z3A.35 - 35 weeks gestation of Activity Restrictions/Additional Instructions: You're being discharged from the emergency department to go to the Center for monitoring to see if your symptoms are contractions. Your given a prescription for a new course of antibiotics. Contact your OB provider for follow-up. Prescriptions: New cephalexin [Keflex] 500 mg capsule 500 mg PO BID 7 Days Qty: 14 RF: 0 No Action mupirocin 2 % ointment 1 applic TOP BID Qty: 22 RF: 0 albuterol sulfate [Ventolin HFA] 90 MCG/PUFF HFA aerosol inhaler 2 puff INH Q4HP PRN (Reason: Shortness Of Breath) Qty: 0 RF: 0 ipratropium bromide [Atrovent HFA] 12.9 GM HFA aerosol inhaler 1 puff INH BID Qty: 0 RF: 0 clindamycin phosphate 2 % cream 1 applicator VAG BEDTIME Qty: 70 RF: 0 metoclopramide HCl [Reglan] 10 mg tablet 10 mg PO Q6H PRN (Reason: nausea and vomiting) Qty: 20 RF: 2 nitrofurantoin macrocrystal 100 mg capsule 100 mg PO Q12H Qty: 10 RF: 0 (DME) Double Electric breast Pump and Supplies See Rx Instructions .ROUTE .MEDSUPPLY Qty: 1 RF: 0 prenat.vits,sisi,kbk-ropz-byurh tablet 1 tab PO DAILY Qty: 30 RF: 0 ondansetron 4 mg tablet,disintegrating 4 mg PO Q6H PRN (Reason: nausea and vomiting) Qty: 10 RF: 0 nitrofurantoin monohyd/m-cryst [Macrobid] 100 mg capsule 100 mg PO Q12H Qty: 14 RF: 0 docusate sodium [Colace] 100 mg capsule 100 mg PO BID PRN (Reason: constipation) Qty: 14 RF: 0 nitrofurantoin monohyd/m-cryst [Macrobid] 100 mg capsule 100 mg PO BID Qty: 10 RF: 0
[2019-10-30] MEDS: ONDANSETRON 4 MG/2 ML INJ IV (03:58)
[2019-10-30] MEDS: SODIUM CHLORIDE 0.9% 1,000 ML 1000 ML IV (03:58)
[2019-10-30 04:12] LABS: Add Manual Diff / Slide Review NO; Basophils Absolute Auto 0 /uL (0-100); Basophils Percent Auto 0.2 % (0-2); Eosinophils Absolute Auto 0 /uL (0-450); Eosinophils Percent Auto 0.4 % (2-4); Hematocrit 35.6 % (36-46); Hemoglobin 12.2 g/dL (12.0-16.0); Lymphocytes Absolute Auto 700 /uL (1100-4500); Lymphocytes Percent Auto 7.7 % (25-40); Mean Corpuscular HGB Conc 34.4 % (30-36); Mean Corpuscular Hemoglobin 29.3 PG (26-34); Mean Corpuscular Volume 85.3 fL (80-100); Monocytes Absolute Auto 400 /uL (0-900); Monocytes Percent Auto 4.2 % (3-14); Neutrophils Absolute Auto 7500 /uL (1500-7000); Neutrophils Percent Auto 87.5 % (50-75); Platelet Count 197 X10^3/uL (150-400); Red Blood Cell Count 4.17 X10^6/uL (4.0-5.2); Red Cell Distribution Width 15.8 % (11.6-14.8); White Blood Cell Count 8.5 X10^3/uL (4.5-11.0)
[2019-10-30 04:21] LABS: Alanine Aminotransferase 10 IU/L (<35); Albumin 3.5 g/dL (3.5-5.0); Albumin Globulin Ratio 1.1 (1.0-2.8); Alkaline Phosphatase 113 U/L (38-126); Aspartate Aminotransferase 20 IU/L (14-36); BUN Creatinine Ratio 17.5 (6-22); Bilirubin Total 0.6 mg/dL (0.2-1.3); Blood Urea Nitrogen 7 mg/dL (7-17); Calcium 8.9 mg/dL (8.4-10.2); Carbon Dioxide 21 mmol/L (22-32); Chloride 104 mmol/L (98-107); Estimated Glomerular Filt Rate > 60.0 mL/min (>60); Globulin 3.1 g/dL (1.7-4.1); Glucose 100 mg/dL (70-100); HEMOLYSIS < 15 (0-50); Lipase 13 U/L (23-300); Potassium 3.8 mmol/L (3.4-5.1); Sodium 135 mmol/L (137-145); Total Protein 6.6 g/dL (6.3-8.2)
[2019-10-30 04:35] LABS: Procalcitonin < 0.05 ng/mL (<0.5)
[2019-10-30 05:07] LABS: RBC Urine None Seen (0-5/HPF)
[2019-10-30 05:15] LABS: Amorphous Sediment Urine 1+; Bacteria Urine Many (>30); Culture Indicated Urine Cult Not Indicated; Mucus Urine 2+ (Negative); Squamous Epithelial Cell Urine 5-10 /HPF (0-5/HPF); WBC Urine 5-10/HPF (0-5/HPF)
[2019-10-30 05:20] VITALS: BP 139/81; PULSE 96; RESP 16; O2SAT 94
[2019-10-30] MEDS: cephALEXin 250 MG CAPSULE 500 MG PO (05:37)
== END 2019-10-30 05:51 | disposition left against medical advice (07) ==
PROVIDERS: Emergency Provider Emergency Medicine
DX: O26.893 Other specified pregnancy related conditions, third trimester (principal); N30.01 Acute cystitis with hematuria; Z3A.35 35 weeks gestation of pregnancy
CPT/HCPCS: 36415; 59025; 80053; 81003; 81015; 83690; 84145; 85025; 87086; 87653; 96361; 96374; 99283; 99284; J2405

== ENCOUNTER → 2019-10-30 06:35 | Outpatient (CLI) | payer OTHER, MEDICAID, SELFPAY | END | disposition home or self-care (01) | LOC: LABOR 06:35 → OB 12:20 | PROVIDERS: Visit Provider Specialist | DX: Z3A.35 35 weeks gestation of pregnancy (principal) | CPT/HCPCS: 59025; G0378; G0379 ==

== ENCOUNTER → 2019-10-30 18:39 | Outpatient (ROUT) | payer OTHER, MEDICAID, SELFPAY ==
[2019-10-31 10:33] LABS: Strep Grp B PCR NEG for Grp B Strep
== END ==
DX: Z3A.35 35 weeks gestation of pregnancy (principal)
CPT/HCPCS: 87653

== ENCOUNTER 2019-11-16 14:53 | Outpatient (CLI) | payer OTHER, MEDICAID, SELFPAY ==
--- NOTE | 2019-11-16 16:34 | PM.OBTRLD ---
Visit Information Visit Information Date of evaluation: 11/16/19 Primary OB Provider: Tico Cleveland On-call OB Provider: Irena Wood Reason for Evaluation: Yes non-stress test non-stress test reason: decreased movement PFSH Social History Smoking Status: Never smoker Evaluation Evaluation Baseline heart rate: 135 Variability: Moderate (11-25) monitor accelerations: Present monitor decelerations: Absent Cervical dilation (cm): 0 station: -3 Diagnosis, Plan/Disposition Final Diagnosis (1) Decreased movement: Current Visit: Yes Status: Acute Plan/Disposition Plan: Reactive NST. OB Disposition: home
== END 2019-11-16 16:42 | disposition home or self-care (01) ==
LOC: LABOR 16:05 → OB 11-20 12:44
DX: O36.8130 Decreased fetal movements, third trimester, not applicable or unspecified (principal); Z3A.39 39 weeks gestation of pregnancy
CPT/HCPCS: 59025; G0378; G0379

== ENCOUNTER 2019-11-24 02:39 | Observation (INO) | payer OTHER, MEDICAID, SELFPAY | END 2019-11-24 06:00 | disposition home or self-care (01) | PROVIDERS: Admitting Provider Obstetrics & Gynecology; Visit Provider Obstetrics & Gynecology | DX: Z34.03 Encounter for supervision of normal first pregnancy, third trimester (principal); Z3A.39 39 weeks gestation of pregnancy | CPT/HCPCS: 59025; 59050; G0378; G0379 ==

== ENCOUNTER → 2019-11-25 12:12 | Outpatient (CLI) | payer OTHER, MEDICAID, SELFPAY | DX: R39.9 Unspecified symptoms and signs involving the genitourinary system (principal); Z34.83 Encounter for supervision of other normal pregnancy, third trimester | CPT/HCPCS: 87086 ==

== ENCOUNTER 2019-11-25 12:20 | Outpatient (CLI) | payer OTHER, MEDICAID, SELFPAY | END 2019-11-25 13:16 | disposition home or self-care (01) | LOC: OB 01-21 11:42 | DX: O36.8130 Decreased fetal movements, third trimester, not applicable or unspecified (principal); M54.5 Low back pain; Z3A.39 39 weeks gestation of pregnancy | CPT/HCPCS: 59025; 87086; G0378; G0379 ==

== ENCOUNTER 2019-11-26 16:15 | Outpatient (CLI) | payer OTHER, MEDICAID, SELFPAY ==
--- NOTE | 2019-11-26 17:08 | PM.OBTRLD ---
Visit Information Visit Information Date of evaluation: 11/26/19 Primary OB Provider: Tico Cleveland Reason for Evaluation: Yes non-stress test non-stress test reason: decreased movement Vital Signs Vital Signs: Temperature 35.4 BP 129/71 105 PFSH Medical History Bronchospastic airway disease (Chronic) Dysmenorrhea (Inactive) General counselling and advice on contraception (Resolved) Herpetic christine (Chronic) Menorrhagia (Inactive) Pyelonephritis (Chronic) Surgical History No pertinent past surgical history (Chronic) Family History Other Family history non-contributory Social History Smoking Status: Never smoker Evaluation Evaluation Baseline heart rate: 135 Variability: Moderate (11-25) monitor accelerations: Present monitor decelerations: Absent Diagnosis, Plan/Disposition Final Diagnosis (1) 39 weeks gestation of : Current Visit: Yes Status: Acute (2) Decreased movement: Current Visit: No Status: Acute Plan/Disposition Plan: Patient is a 19-year-old at 39 weeks gestation currently on Macrobid for a UTI. She came in today due to decreased movement. NST reactive. Patient reassured. Follow-up in clinic as scheduled tomorrow. OB Disposition: home
== END 2019-11-26 17:34 | disposition home or self-care (01) ==
LOC: LABOR 16:51 → OB 11-27 11:48
DX: O36.8130 Decreased fetal movements, third trimester, not applicable or unspecified (principal); Z3A.39 39 weeks gestation of pregnancy
CPT/HCPCS: 59025; G0378; G0379

== ENCOUNTER 2019-11-30 12:13 | Outpatient (CLI) | payer OTHER, MEDICAID, SELFPAY | END 2019-11-30 13:28 | disposition home or self-care (01) | LOC: LABOR 12:54 → OB 12-03 09:55 | DX: O47.1 False labor at or after 37 completed weeks of gestation (principal); Z3A.39 39 weeks gestation of pregnancy | CPT/HCPCS: 59025; G0378; G0379 ==

== ENCOUNTER 2019-12-01 13:52 | Observation (INO) | payer OTHER, MEDICAID, SELFPAY ==
--- NOTE | 2019-12-01 15:56 | PM.OBTRLD ---
Visit Information Visit Information Date of evaluation: 12/01/19 Primary OB Provider: Tico Cleveland On-call OB Provider: Britt Buchanan Reason for Evaluation: Yes non-stress test Comments/Additional reasons for admission: Patient is a G1P) @39+6 a/w lower back pains, denies VB, LOF, dFM. No other complaints, cat 1 reactive EFM, contractions q30 min, no cervical change on serial exams. Patient encouraged to ambulate, return if ctx q5 and painful or other obstetric complaints. [facility] Medical History Bronchospastic airway disease (Chronic) Dysmenorrhea (Inactive) General counselling and advice on contraception (Resolved) Herpetic christine (Chronic) Menorrhagia (Inactive) Pyelonephritis (Chronic) Surgical History No pertinent past surgical history (Chronic) Family History Other Family history non-contributory Social History Smoking Status: Never smoker Review of Systems Constitutional Constitutional: Reports system reviewed and no additional complaints, except as documented Gastrointestinal Gastrointestinal: Reports as per HPI Genitourinary Genitourinary: Reports as per HPI Exam Vital Signs (past 8 hours): 129/60, HR 94, T 36.2C Evaluation Evaluation Baseline heart rate: 135 Variability: Average (6-10) monitor accelerations: Present monitor decelerations: Absent Category of Tracing: I Cervical dilation (cm): 2 Comments: Patient 2cm on multiple exams Diagnosis, Plan/Disposition Plan/Disposition Plan: Antepartum precautions reviewed, patient to return with regular contractions, decreased movement, VB, LOF, or any other complaints. OB Disposition: home
== END 2019-12-01 15:48 | disposition home or self-care (01) ==
DX: O26.893 Other specified pregnancy related conditions, third trimester (principal); M54.5 Low back pain; Z3A.39 39 weeks gestation of pregnancy
CPT/HCPCS: 59025; G0378; G0379

== ENCOUNTER 2019-12-01 23:52 | Inpatient (IN) | payer OTHER, MEDICAID, SELFPAY ==
[2019-12-02 02:18] LABS: Add Manual Diff / Slide Review NO; Basophils Absolute Auto 0 /uL (0-100); Basophils Percent Auto 0.5 % (0-2); Eosinophils Absolute Auto 100 /uL (0-450); Eosinophils Percent Auto 0.7 % (2-4); Hemoglobin 12.6 g/dL (12.0-16.0); Lymphocytes Absolute Auto 2000 /uL (1100-4500); Lymphocytes Percent Auto 20.4 % (25-40); Mean Corpuscular HGB Conc 34.2 % (30-36); Mean Corpuscular Volume 84.9 fL (80-100); Monocytes Absolute Auto 700 /uL (0-900); Monocytes Percent Auto 7.1 % (3-14); Neutrophils Absolute Auto 7100 /uL (1500-7000); Neutrophils Percent Auto 71.3 % (50-75); Platelet Count 242 X10^3/uL (150-400); Red Blood Cell Count 4.36 X10^6/uL (4.0-5.2)
[2019-12-02] MEDS: ONDANSETRON 4 MG/2 ML INJ IV (02:33)
[2019-12-02] MEDS: LACTATED RINGERS 1,000 ML 100 ML IV (02:34)
--- NOTE | 2019-12-02 04:27 | PM.OBHP.1 ---
OB HPI Date/Time Date of admission: 12/02/19 Date Patient Seen: 12/02/19 Time Patient Seen: 04:29 History of Present Condition Chief complaint: : 1 Para: 0 Estimated Date of Delivery: 12/02/19 Estimated Gestational Age (weeks): 40 Narrative: Nan Lynn is a 19 year old @40+0 presenting in active labor. The patient reports that she has been krzysztof for weeks, but that these became painful shortly before midnight. She denies LOF, VB, decreased movement, or any other complaints obstetrical or otherwise. The patient reports an uncomplicated , though records review that both she and her partner were treated for chlamydia at the beginning of the and that she has a history of herpetic christine. History of Present care: good care Dating criteria: LMP confirmed by 1st trimester US Ultrasounds: normal mid trimester US Obstetrical complications: none Medical complications: none Preadmission Labs Blood type: O (+) positive -: Antibody screen: negative, GBS status: negative, HBsAG: negative, HIV: negative, HSV 1: negative, HSV 2: negative and RPR/VDLR: negative -: Chlamydia screen: detected (treated) -: Rubella: immune and Varicella: immune Urine: Tx for multiple UTIs 3 hr GTT: 3 hr (Passed) Evaluation Evaluation Baseline heart rate: 125 Variability: Average (6-10) monitor accelerations: Present monitor decelerations: Variable Contraction Frequency (minutes): 2 Category of Tracing: II Cervical dilation (cm): 9 Cervical effacement (%): 100 station: -1 Laboratory results: Laboratory Tests 12/02/19 12/02/19 02:00 02:00 WBC 10.0 RBC 4.36 Hgb 12.6 Hct 37.0 MCV 84.9 MCH 29.0 MCHC 34.2 RDW 15.0 H Plt Count 242 Neut % (Auto) 71.3 Lymph % (Auto) 20.4 L [place] % (Auto) 7.1 Eos % (Auto) 0.7 L Baso % (Auto) 0.5 Neut # (Auto) 7100 H Lymph # (Auto) 2000 [place] # (Auto) 700 Eos # (Auto) 100 Baso # (Auto) 0 Blood Type O Positive Antibody Screen Negative Comments: AROM at initial exam for clear fluid PFSH Medical History Bronchospastic airway disease (Chronic) Dysmenorrhea (Inactive) General counselling and advice on contraception (Resolved) Herpetic christine (Chronic) Menorrhagia (Inactive) Pyelonephritis (Chronic) Surgical History No pertinent past surgical history (Chronic) Family History Other Family history non-contributory Social History Smoking Status: Never smoker Meds Home Medications and Allergies Home Medications Medication Instructions Recorded Confirmed Type prenat.vits,sisi,trv-yjld-cgjnm 1 tab PO DAILY #30 tab 03/25/19 12/02/19 Rx Double Electric breast Pump and #1 each 10/02/19 10/07/19 Rx Supplies Allergies Allergy/AdvReac Type Severity Reaction Status Date / Time sertraline [From ZOLOFT] Allergy Unknown Hives Verified 10/07/19 18:17 Review of Systems Constitutional Constitutional: Reports system reviewed and no additional complaints, except as documented Cardiovascular Cardiovascular: Reports system reviewed; no additional complaints, except as documented Respiratory Respiratory: Reports system reviewed and no additional complaints, except as documented Gastrointestinal Gastrointestinal: Reports system reviewed and no additional complaints, except as documented Genitourinary Genitourinary: Reports system reviewed and no additional complaints, except as documented Musculoskeletal Musculoskeletal: Reports system reviewed; no additional complaints, except as documented Exam Const General: cooperative, healthy appearing and comfortable GI Palpation: soft and No tender External Female Exam: external appearance normal and no lesions OB/External & Speculum: external exam normal and no herpetic lesions Manual OB Exam: dilated 9, effaced fully and station -1 Presentation: vertex Estimated Weight (lbs): 8 Amniotic Fluid: clear Objective Labs Result Diagrams: 12/02/19 02:00 Labs: Laboratory Results - last 24 hr 12/02/19 12/02/19 02:00 02:00 WBC 10.0 RBC 4.36 Hgb 12.6 Hct 37.0 MCV 84.9 MCH 29.0 MCHC 34.2 RDW 15.0 H Plt Count 242 Neut % (Auto) 71.3 Lymph % (Auto) 20.4 L [place] % (Auto) 7.1 Eos % (Auto) 0.7 L Baso % (Auto) 0.5 Neut # (Auto) 7100 H Lymph # (Auto) 2000 [place] # (Auto) 700 Eos # (Auto) 100 Baso # (Auto) 0 Blood Type O Positive Antibody Screen Negative Assessment and Plan Assessment and Plan Assessment and Plan narrative: This patient presents in active labor, and has received an epidural. She will be managed expectantly after her AROM, anticipating vaginal delivery. - cEFM, toco - CBC, T&S sent - GBS negative
--- NOTE | 2019-12-02 06:33 | P.PCNOB_ITS ---
<Britt Buchanan MD - Last Filed: 12/07/19 12:16> Labor & Delivery Delivery date: 12/02/19 Intrapartal events: Acceleration and Deceleration Cervical ripening method: none Induction method: none Delivery augmentation: rupture of membranes Delivery monitor: external FHT and external uterine Route of delivery: L&D Laceration Description: Periurethral - 1st Degree and Perineal - 2nd Degree (repaired with 3-0 vicryl in the usual fashion) Delivery repair: vicryl Estimated blood loss (mL): 200 Anesthesia type: Epidural Narrative: This patient presented in active labor and progressed spontaneously to fully dilated. She had a 45 minute second stage complicated by variable and prolonged decelerations in the setting of rapid descent just before delivery. 1 loose nuchal cord was reduced at the time of delivery, and the shoulders delivered with ease. She was delivered of a healthy baby boy at 607 AM, apgars 9+9, weight 7#14. A 2nd degree perineal laceration was repaired with 3-0 vicryl in the usual fashion, and 1st degree periuretherals were repaired with 3-0 vicryl with interrupted sutures where necessary to obtain hemostasis. There were no other intrapartum or immediate complications. [place] Baby 1: Infant gender: Male Presentation: vertex position: Left Occiput Transverse (Direct OA) Placenta delivery description: Spontaneous cord vessel description: Loose score (1 min): 9 score (5 min): 9 Plan for aftercare: Routine care
[2019-12-02] MEDS: IBUPROFEN 600 MG TABLET PO ×3 (09:25→21:28)
[2019-12-02] MEDS: DOCUSATE 100 MG CAPSULE PO (09:25)
[2019-12-02 09:56] VITALS: BP 125/72
[2019-12-02] MEDS: ACETAMINOPHEN 325 MG TABLET 650 MG PO ×2 (15:35→21:28)
[2019-12-02] MEDS: LANOLIN OINT 7 GM 1 APPLIC TOP (20:14)
[2019-12-03] MEDS: IBUPROFEN 600 MG TABLET PO ×4 (03:04→23:24)
[2019-12-03] MEDS: ACETAMINOPHEN 325 MG TABLET 650 MG PO ×3 (03:04→21:09)
--- NOTE | 2019-12-03 07:49 | P.PNOB_ITS ---
Subjective - OB Subjective Patient comments: no complaints [place] baby status: doing well feeding status: exclusively breast feeding Narrative: Patient is 24 hours post rapid labor and spontaneous vaginal delivery of a live-born male infant. Baby's having some trouble with latching and . Patient is doing well. She remains afebrile with stable vital signs. She is ambulating well. She is taking p.o. well. Date Patient Seen: 12/03/19 Time Patient Seen: 07:50 Exam Vital Signs (past 8 hours): Fundus U minus two Lochia scant Objective Labs Result Diagrams: 12/02/19 02:00 Assessment & Plan Plan day: 1 plan OB: routine care Comments: Patient needs hematocrit Patient needs consultation Time Spent With Patient Time: Total time spent is greater than 50% in coordination of care (as do cumented) at patient's floor/unit and/or counseling patient: Time with patient: less than 15 minutes
[2019-12-03 21:11] LABS: Hematocrit 33.6 % (36-46)
[2019-12-04] MEDS: HYDROCODONE/ACET 5/325 TABLET 1 TAB PO ×4 (00:33→12:30)
[2019-12-04] MEDS: DOCUSATE 100 MG CAPSULE PO ×2 (01:49→08:27)
[2019-12-04] MEDS: IBUPROFEN 600 MG TABLET PO ×2 (05:10→11:05)
--- NOTE | 2019-12-04 08:03 | P.DS_ITS ---
Discharge Providers Provider Date of admission: 12/01/19 23:52 Discharge Date: 12/04/19 Consults: 12/03/19 06:32 Consult to Senior Engineering Specialist Routine Comment: Discharge provider: Tico Cleveland MD Summary Hospital Course Date Patient Seen: 12/04/19 Time Patient Seen: 08:12 Procedures: Spontaneous vaginal delivery Second-degree tear Hospital Course: The patient is a 19-year-old white female one now para one who presented in active labor at 9 cm. She rapidly progressed to a to complete and pushed for 45 minutes and delivered spontaneously a live born male infant with scores of eight at 1 minutes and nine at 5 minutes in good condition. She had a second-degree tear. Post delivery she did well. She remained afebrile with stable vital signs. She took p.o. well was aggressively ambulated. She did have some cramping pain in produced a small portion of placenta and her bleeding and pain subsided after that. There's been no further bleeding or discharge. Peripartum Data Infant Delivery Method: Natural Vaginal Laceration description: Perineal - 2nd Degree Procedures: Spontaneous vaginal delivery Second-degree tear complications: none Status at Discharge Cognitive/behavioral status at discharge: oriented Functional status at discharge: independent ambulation Overall status at discharge: patient is progressing back to baseline Time Spent with Patient Time attestation: Total time spent providing and/or coordinating discharge services: Time spent: Less than 30 minutes Specific discharge activities: May be than shower No coitus for six week Progressive ambulation Objective Labs Result Diagrams: 12/03/19 21:05 Labs: Laboratory Results - last 24 hr 12/03/19 21:05 Hct 33.6 L Exam Vital Signs (past 8 hours): Fundus U minus three and four Lochia is scant no further passage of tissue Discharge Plan Discharge Plan Patient Disposition: Home Discharge orders & Medications Prescriptions: New oxycodone-acetaminophen [Percocet] 5-325 mg tablet 1 tab PO Q8H PRN (Reason: pain) Qty: 10 RF: 0 docusate sodium [DOK] 100 mg Capsule 100 mg PO BID Qty: 10 RF: 0 ibuprofen 600 mg Tablet 600 mg PO Q6HR PRN (Reason: Pain, Mild (1-3)) Qty: 20 RF: 0 Dermoplast (with menthol) 20-0.5 % Aerosol 1 spray topical Q1HR PRN (Reason: Pain, Moderate (4-6)) Qty: 1 RF: 0 Oac-C-Zzkwne Cream 1 applic topical PRN PRN (Reason: Sore Nipples) Qty: 1 RF: 0 Continued (DME) Double Electric breast Pump and Supplies See Rx Instructions .ROUTE .MEDSUPPLY Qty: 1 RF: 0 prenat.vits,sisi,hwo-lakd-xkoyd tablet 1 tab PO DAILY Qty: 30 RF: 0 Follow up/Referrals: Tico Cleveland MD [Family Provider] - 1 Month Discharge Health Status Multidrug resistant organism: No MDRO Diet/Activity/Treatments Diet: Diet as Tolerated Activity: Up ad uma May shower No sexual relations Skin/Wound/Dressing Care Skin care: Keep laceration clean and dry Report to your healthcare provider any signs of infection, such as:: chills, fever, increased pain, unusual drainage and unusual redness Dressing: None Visit Report/Discharge Packet Stand Alone Forms: Discharge: Care
[2019-12-04 09:37] VITALS: BP 139/81; PULSE 72; RESP 16; TEMP 37.1
== END 2019-12-04 12:45 | disposition home or self-care (01) | DRG 560 ==
PROVIDERS: Admitting Provider Obstetrics & Gynecology; Visit Provider Obstetrics & Gynecology
DX: O70.1 Second degree perineal laceration during delivery (principal); O71.82 Other specified trauma to perineum and vulva; Z3A.40 40 weeks gestation of pregnancy; Z37.0 Single live birth; M54.5 Low back pain
CPT/HCPCS: 01967; 36415; 59025; 59050; 59409; 85014; 85025; 86850; 86900; 86901; G0378; G0379; J2405

== ENCOUNTER → 2020-01-30 17:39 | Outpatient (CLI) | payer OTHER, MEDICAID, SELFPAY | PROVIDERS: Visit Provider Nurse Practitioner | DX: R10.9 Unspecified abdominal pain (principal); R10.2 Pelvic and perineal pain | CPT/HCPCS: 87086; 87210 ==

== ENCOUNTER → 2020-08-12 15:05 | Outpatient (CLI) | payer OTHER, MEDICAID, SELFPAY ==
[2020-08-12 19:58] LABS: COVID19 -Nasal RAPID Negative (Negative)
== END ==
PROVIDERS: Visit Provider Nurse Practitioner
DX: J02.9 Acute pharyngitis, unspecified (principal)
CPT/HCPCS: 87070; 87077; 87147; 87635

== ENCOUNTER 2020-08-21 12:46 | Emergency (ER) | payer OTHER, MEDICAID, SELFPAY ==
[2020-08-21 12:54] VITALS: BP 138/88; PULSE 106; RESP 20; TEMP 36.9; O2SAT 96; BMI 37.0
--- NOTE | 2020-08-21 13:02 | PC.NURSE ---
Patient reports hives and itching started yesterday on abdomen and spread to hands and feet. Now only has hives across lower abdomen. Patient endorses pruritis but denies difficulty breathing. Lung sounds clear throughout and pulse ox 96% on RA. Patient denies new food, medication, or change in routine. Denies taking any medication at home prior to coming.
[2020-08-21] MEDS: predniSONE 20 MG TABLET 40 MG PO (13:41)
[2020-08-21] MEDS: diphenhydrAMINE 25 MG TABLET 50 MG PO (13:41)
--- NOTE | 2020-08-21 13:53 | ED.ALLEREA ---
HPI - Allergic Reaction General Chief complaint: Allergic Reaction Stated complaint: allergic reaction/ sob Time Seen by Provider: 08/21/20 13:52 Source: patient Mode of arrival: Ambulatory Limitations: no limitations History of Present Illness HPI narrative: PATIENT IS A 19-YEAR-OLD FEMALE WHO PRESENTS WITH HIVES AND ALLERGIC REACTION this morning and had itching and hives on her stretch mejia and legs. Denies any difficulty breathing tongue swelling or lip swelling. She is unsure what she is allergic to she denies any new soaps lotions or exposures no new medication. MD complaint: allergic reaction and hives Onset (ago): hour(s) Symptoms: rash and itching Severity: mild Treatment prior to arrival: none Related Data Previous Rx's Medication Instructions Recorded prenat.vits,sisi,ict-vfza-eojla 1 tab PO DAILY #30 tab 03/25/19 Double Electric breast Pump and #1 each 10/02/19 Supplies ibuprofen 600 mg PO Q6HR PRN #20 tab 12/04/19 albuterol sulfate 90 mcg/actuation 2 puff INHALATION Q6H PRN #8 gram 02/29/20 aerosol inhaler drospirenone 3 mg-ethinyl 1 tab PO DAILY #84 tab 02/29/20 estradiol 0.02 mg tablet dexamethasone sodium phosphate 10 10 mg PO ONCE #1 ml 08/12/20 mg/mL injection solution amoxicillin 500 mg capsule 500 mg PO BID 10 Days #20 cap 08/18/20 prednisone 40 mg PO DAILY #8 tab 08/21/20 Allergies Allergy/AdvReac Type Severity Reaction Status Date / Time sertraline [From ZOLOFT] Allergy Unknown Hives Verified 08/12/20 15:03 Review of Systems Review of Systems Narrative: GENERAL: Denies chills, fatigue, malaise, fever, sweats, travel HEENT: Denies sinus pain, ear pain, sore throat, difficulty swallowing, neck pain RESPIRATORY: Denies dyspnea, cough, wheezing, hemoptysis, sputum. CARDIOVASCULAR: Denies chest pain, palpitations, orthopnea, edema GASTROINTESTINAL: Denies nausea, vomiting, abdominal pain, diarrhea, constipation, melena. : Denies dysuria, frequency, incontinence, hematuria, urinary retention, flank pain. MUSCULOSKELETAL: Denies weakness, joint pain, or bony pain SKIN: See HPI NEUROLOGIC: Denies weakness, dizziness, headache, numbness, change in speech, confusion PSYCHIATRIC: No concerning psychosocial issues. 12 point review of systems is negative except for those stated above and HPI Patient History Medical History Bronchospastic airway disease (Chronic) Dysmenorrhea (Inactive) General counselling and advice on contraception (Resolved) Herpetic christine (Chronic) Menorrhagia (Inactive) Pyelonephritis (Chronic) Surgical History No pertinent past surgical history (Chronic) Family History Other Family history non-contributory Social History Smoking Status: Unknown if ever smoked Smoking Status: Unknown if ever smoked alcohol intake frequency: 0-2 drinks per day Substance Use Type: does not use Exam Initial Vital Signs Initial Vital Signs: Vital Signs Temperature 98.4 F 08/21/20 12:54 Pulse Rate 106 H 08/21/20 12:54 Respiratory Rate 20 08/21/20 12:54 Blood Pressure 138/88 08/21/20 12:54 Pulse Oximetry 96 08/21/20 12:54 GENERAL: Well-appearing, well-nourished and in no acute distress. HEENT: Head atraumatic,EOMI, pupils reactive CARDIOVASCULAR: Regular rate and rhythm without murmurs, rubs or gallops. RESPIRATORY: Breath sounds equal bilaterally, no wheezes rales or rhonchi. EXTREMITIES: Normal range of motion, no clubbing or edema. Neurovascularly intact NEUROLOGICAL: Alert and oriented x4. SKIN: Hives noted on abdomen Course Orders Ordered: Discontinued Medications Diphenhydramine HCl (Benadryl) 50 mg PO NOW ONE Stop: 08/21/20 13:38 Last Admin: 08/21/20 13:41 Dose: 50 mg Documented by: SANTI Prednisone (Deltasone) 40 mg PO NOW ONE Stop: 08/21/20 13:38 Last Admin: 08/21/20 13:41 Dose: 40 mg Documented by: SANTI Vital Signs Vital signs: Vital Signs - 8 hr 08/21/20 12:54 08/21/20 14:12 Temperature 98.4 F Pulse Rate 106 H 92 H Respiratory Rate 20 14 Blood Pressure 138/88 127/79 Pulse Oximetry 96 96 MDM - Allergic Reaction MDM Narrative Medical decision making narrative: Patient shows no signs of anaphylaxis. This likely just hives and allergic reaction already starting to improve with Benadryl and prednisone in the ED. Discharge Plan Departure Patient Disposition: Home Clinical Impression: Hives Discharge Date/Time: 08/21/20 14:12 Instructions: DI for Hives Activity Restrictions/Additional Instructions: *You have been diagnosed with hives *What to do: you may require allergy testing *Continue to take medications as directed Prednisone 40 mg once a day for 4 days start tomorrow--> [facility] [place] Benadryl 25 mg every 6 hours only if needed for itching however this can cause drowsiness *Follow up with your primary care provider in 2-3 days *Return to ER if you should have increased lip swelling tongue swelling difficulty breathing or talking or any new, worsening or concerning symptoms Prescriptions: New prednisone 20 mg tablet 40 mg PO DAILY Qty: 8 RF: 0 No Action dexamethasone sodium phosphate 10 mg/mL solution 10 mg PO ONCE Qty: 1 RF: 0 amoxicillin 500 mg capsule 500 mg PO BID 10 Days Qty: 20 RF: 0 (DME) Double Electric breast Pump and Supplies See Rx Instructions .ROUTE .MEDSUPPLY Qty: 1 RF: 0 drospirenone-ethinyl estradiol [TARAH (28)] 3-0.02 mg tablet 1 tab PO DAILY Qty: 84 RF: 3 albuterol sulfate 90 mcg/actuation HFA aerosol inhaler 2 puff INHALATION Q6H PRN (Reason: shortness of breath or wheezing) Qty: 8 RF: 1 prenat.vits,sisi,xxc-pfmb-spcaz tablet 1 tab PO DAILY Qty: 30 RF: 0 ibuprofen 600 mg Tablet 600 mg PO Q6HR PRN (Reason: Pain, Mild (1-3)) Qty: 20 RF: 0 Referrals: [facility] [Outside]
[2020-08-21 14:12] VITALS: BP 127/79; PULSE 92; RESP 14; O2SAT 96
== END 2020-08-21 14:12 | disposition home or self-care (01) ==
PROVIDERS: Emergency Provider Emergency Medicine
DX: L50.9 Urticaria, unspecified (principal)
CPT/HCPCS: 99283